=== PATIENT | female | born 1945 | race Caucasian/White ===

== ENCOUNTER → 2020-02-05 | Outpatient (CLI) | payer MEDICARE, SELFPAY ==
[2020-02-05 16:20] VITALS: BMI 33.9
--- NOTE | 2020-02-05 17:05 | RAD_ITS ---
STUDY: X-RAY CHEST REASON FOR EXAM: Female, 74 years old. COUGH AND SOB TECHNIQUE: Frontal and lateral views of the chest. COMPARISON: None. FINDINGS: Elevated right hemidiaphragm. No infiltrates. No effusions. 6.8 cm probable mass of the right hilum. CT with contrast is recommended. There is borderline cardiomegaly. Normal visualized pulmonary arteries. Normal visualized aortic arch and descending thoracic aorta. There are diffuse degenerative changes of the visualized thoracic spine. Normal visualized ribs, clavicles, and shoulders. There is no demonstrated abnormality of the visualized soft tissue structures of the upper abdomen. RAD/Chest PA and Lateral IMPRESSION: 6.8 cm probable mass of the right hilum. CT with contrast is recommended. Electronically Signed: Hardy Shaffer MD at 17:21 EDT , Service support ,
== END | disposition home or self-care (01) ==
LOC: MTRAD 17:05
PROVIDERS: PCP Family Medicine; Referring Provider Physician Assistant; Visit Provider Physician Assistant
DX: R06.02 Shortness of breath (principal)
CPT/HCPCS: 71046

== ENCOUNTER → 2020-02-10 | Outpatient (CLI) | payer MEDICARE, SELFPAY ==
[2020-02-05 16:20] VITALS: BMI 33.9
--- NOTE | 2020-02-10 07:10 | CT_ITS ---
STUDY: CT CHEST WITH CONTRAST REASON FOR EXAM: Female, 74 years old. 6.8 PALPABLE MASS RIGHT HILUM SEEN ON CXR RADIATION DOSAGE (If Supplied By Facility): CTDIvol = ( 18.78 ) mGy, DLP = ( 504.24 ) mGycm TECHNIQUE: Transaxial imaging was performed following intravenous administration of IV 100mL Isovue-300. Multiplanar coronal and sagittal images were reformatted. Individualized dose optimization techniques were used for this CT. COMPARISON: None. FINDINGS: Elevation of the right hemidiaphragm. Minimal increased markings scattered throughout the lungs suggest some mild scarring more prominent in the lower lobes. There is no demonstrated pleural abnormality. There are calcifications of the coronary arteries. Mild cardiomegaly. There are multiple small lymph nodes within the mediastinum, which are normal in size and morphology most compatible with reactive lymph hyperplasia. Normal hilar regions. No hilar mass is seen. Normal enhanced pulmonary arteries. There is atherosclerotic calcification of the aortic arch . There are multi-level degenerative changes of the thoracic spine. There is no demonstrated abnormality of the visualized upper abdomen. CT/Chest WITH Contrast IMPRESSION: No acute abnormality is seen. Electronically Signed: Abelino Jama, at 8:39 EDT , Service support ,
== END | disposition home or self-care (01) ==
PROVIDERS: PCP Family Medicine; Referring Provider Physician Assistant; Visit Provider Physician Assistant
DX: R22.2 Localized swelling, mass and lump, trunk (principal)
CPT/HCPCS: 71260; Q9967

== ENCOUNTER → 2020-02-20 | Outpatient (CLI) | payer MEDICARE, SELFPAY ==
[2020-02-05 16:20] VITALS: BMI 33.9
[2020-02-20 15:28] LABS: Absolute Lymphocyte Count 0.82 X10^3/uL (0.83-4.51); Absolute Neutrophil Count 4.1 X10^3/uL (2.0-7.7); Basophil# 0.04 X10^3/uL; Basophil% 0.7 % (0-1); Eosinophil# 0.13 X10^3/uL; Eosinophils% 2.4 % (0-5); Hemoglobin 14.8 g/dL (12.0-15.0); Lymphocyte # 0.82 X10^3/ul (4.0); Mean Corp Hgb Conc 30.2 g/dL (32-36); Mean Corpuscular Hgb 26.9 pg (27.0-32.0); Mean Corpuscular Volume 88.9 fL (81-99); Mean Platelet Vol. 11.8 fl (6.2-12.0); Monocyte# 0.34 X10^3/uL; Monocyte% 6.2 % (0-10); NRBC Flagged by Analyzer 0 % (0-5); Neutrophil # 4.14 X10^3/uL (2.7-7.7); Neutrophil % 75.5 % (47-70); Platelet Count 171 K/mm3 (150-450); RBC Distribution Width CV 16.2 % (11.6-14.6); RBC Distribution Width SD 53.4 fl (35.1-43.9); Red Blood Count 5.51 M/mm3 (4.2-5.4); White Blood Count 5.5 K/mm3 (4.4-11.0)
[2020-02-20 16:05] LABS: ALB/GLOB Ratio 1.1 RATIO (0.9-2.4); AST(SGOT) 33 U/L (15-37); Alanine Aminotransfer ALT/SGPT 23 U/L (13-56); Alkaline Phosphatase 77 U/L (45-117); Anion Gap 7 (5-15); BUN 16 mg/dL (7-18); BUN/Creat Ratio 13.7 RATIO (10-20); Calcium,Total 9.6 mg/dL (8.5-10.1); Chloride 104 mmol/L (98-107); Creatinine, Serum 1.17 mg/dL (0.55-1.02); EST Glomerular Filtration Rate 48 mL/min (>60); Est Glom Filt Rate - Afr Amer 58 mL/min (>60); Globulin 3.5 g/dL (2.2-4.2); Glucose 107 mg/dL (74-106); LDH 280 U/L (84-246); Potassium 4.2 mmol/L (3.5-5.1); Protein, Total 7.5 g/dL (6.4-8.2); Sodium Level 138 mmol/L (136-145)
== END | disposition home or self-care (01) ==
LOC: LAB.FUTURE 11:24 → MTLAB 11:30
PROVIDERS: PCP Family Medicine; Referring Provider Family Medicine; Visit Provider Family Medicine
DX: R91.8 Other nonspecific abnormal finding of lung field (principal); Z51.81 Encounter for therapeutic drug level monitoring; Z13.220 Encounter for screening for lipoid disorders
CPT/HCPCS: 36415; 80053; 83615; 85025

== ENCOUNTER → 2020-03-11 | Outpatient (CLI) | payer MEDICARE, SELFPAY ==
[2020-02-05 16:20] VITALS: BMI 33.9
[2020-03-11 12:26] LABS: Absolute Lymphocyte Count 1.41 X10^3/uL (0.83-4.51); Absolute Neutrophil Count 5.1 X10^3/uL (2.0-7.7); Basophil# 0.07 X10^3/uL; Basophil% 0.9 % (0-1); Eosinophil# 0.34 X10^3/uL; Eosinophils% 4.5 % (0-5); Lymphocyte # 1.41 X10^3/ul (4.0); Lymphocyte % 18.8 % (19-41); Mean Corp Hgb Conc 30.1 g/dL (32-36); Mean Corpuscular Hgb 26.4 pg (27.0-32.0); Mean Corpuscular Volume 87.6 fL (81-99); Mean Platelet Vol. 11.3 fl (6.2-12.0); Monocyte# 0.51 X10^3/uL; Monocyte% 6.8 % (0-10); NRBC Flagged by Analyzer 0 % (0-5); Neutrophil # 5.14 X10^3/uL (2.7-7.7); Neutrophil % 68.6 % (47-70); Platelet Count 180 K/mm3 (150-450); RBC Distribution Width CV 15.8 % (11.6-14.6); RBC Distribution Width SD 50.3 fl (35.1-43.9); Red Blood Count 6.45 M/mm3 (4.2-5.4); White Blood Count 7.5 K/mm3 (4.4-11.0)
[2020-03-11 12:32] LABS: Hematocrit 56.5 % (37-47)
[2020-03-11 12:55] LABS: Vitamin B12 500 pg/mL (211-911)
[2020-03-11 13:11] LABS: AST(SGOT) 34 U/L (15-37); Alanine Aminotransfer ALT/SGPT 23 U/L (13-56); Albumin, Serum 3.9 g/dL (3.2-5.0); Alkaline Phosphatase 94 U/L (45-117); Anion Gap 8 (5-15); BUN 26 mg/dL (7-18); Calcium,Total 9.7 mg/dL (8.5-10.1); Chloride 102 mmol/L (98-107); Creatinine, Serum 1.53 mg/dL (0.55-1.02); EST Glomerular Filtration Rate 35 mL/min (>60); Est Glom Filt Rate - Afr Amer 43 mL/min (>60); Free T3 2.7 pg/mL (2.18-3.98); Glucose 112 mg/dL (74-106); Potassium 4.3 mmol/L (3.5-5.1); Protein, Total 7.9 g/dL (6.4-8.2); Sodium Level 135 mmol/L (136-145); T4 Free Direct 0.93 ng/dL (0.76-1.46); Thyroid Stim Hormone (TSH) 4.96 uIU/mL (0.358-3.74)
== END | disposition home or self-care (01) ==
LOC: MTLAB 10:25
PROVIDERS: PCP Family Medicine; Referring Provider Family Medicine; Visit Provider Family Medicine
DX: E53.8 Deficiency of other specified B group vitamins (principal); R74.8 Abnormal levels of other serum enzymes; R53.83 Other fatigue; R20.2 Paresthesia of skin
CPT/HCPCS: 36415; 80053; 82607; 84439; 84443; 84481; 85025

== ENCOUNTER → 2020-03-17 | Outpatient (CLI) | payer MEDICARE, SELFPAY ==
[2020-02-05 16:20] VITALS: BMI 33.9
--- NOTE | 2020-03-17 10:13 | US_ITS ---
STUDY: ABDOMINAL ULTRASOUND - RIGHT UPPER QUADRANT REASON FOR VISIT: Female, 74 years old MIDLINE ABD PAIN AND LUQ PAIN TECHNIQUE: Ultrasound evaluation of the right upper quadrant was performed with real-time and static castillo-scale imaging. TECHNICAL QUALITY: Limited. Examination limited due to a combination of factors including obesity and bowel gas. COMPARISON: None. FINDINGS: Liver: The liver measures 13 cm. There is normal echogenicity of the liver. The bile ducts are within normal limits. There is hepatic color flow. The direction of portal flow is hepatopetal. There is no demonstrated mass lesion. Gallbladder: There is a distended gallbladder. The gallbladder wall measures 2.6 mm. There is a negative sonographic Coates''s sign. There is no pericholecystic fluid. There are no gallstones. Sludge is seen within the gallbladder lumen. Common Bile Duct (C.B.D.): The common bile duct measures 6.6 mm. Pancreas: Normal size of the head, body and tail of the pancreas. There is increased echogenicity of the pancreas. There is no demonstrated pancreatic mass or cyst. Right Kidney: Normal size of the right kidney. The right kidney measures 9.6 cm x 5.1 cm x 4.9 cm. Normal renal cortex. The right cortex measures 1.2 cm. There is no demonstrated renal mass or cyst. There is no right hydronephrosis. US/Abdomen Limited IMPRESSION: Distended gallbladder. Sludge is seen within the gallbladder lumen. Electronically Signed: Abelino Jama, at 15:30 EDT , Service support ,
--- NOTE | 2020-03-17 10:13 | US_ITS ---
STUDY: SUPERFICIAL ULTRASOUND - RIGHT CERVICAL REGION REASON FOR EXAM: Female, 74 years old. LUMP RIGHT NECK TECHNIQUE: A superficial ultrasound was performed with real-time and static castillo-scale imaging. COMPARISON: None. FINDINGS: There is an 8 mm x 4 mm x 6 mm hypoechoic well-defined nodule corresponding to the palpable mouth view. This most likely represents a small lymph node. US/Head/Neck Soft Tissue IMPRESSION: Findings suggestive of a small lymph node corresponding to the palpable abnormality. Electronically Signed: Abelino Jama, at 8:38 EDT , Service support ,
== END | disposition home or self-care (01) ==
LOC: US 10:12
PROVIDERS: PCP Family Medicine; Referring Provider Family Medicine; Visit Provider Family Medicine
DX: R22.1 Localized swelling, mass and lump, neck (principal); R74.8 Abnormal levels of other serum enzymes; R10.11 Right upper quadrant pain
CPT/HCPCS: 76536; 76705

== ENCOUNTER → 2020-03-25 | Outpatient (CLI) | payer MEDICARE, SELFPAY ==
[2020-02-05 16:20] VITALS: BMI 33.9
[2020-03-25 17:21] LABS: AST(SGOT) 26 U/L (15-37); Alanine Aminotransfer ALT/SGPT 17 U/L (13-56); Albumin, Serum 3.6 g/dL (3.2-5.0); Alkaline Phosphatase 87 U/L (45-117); Anion Gap 7 (5-15); BUN 12 mg/dL (7-18); BUN/Creat Ratio 10.9 RATIO (10-20); Calcium,Total 9.3 mg/dL (8.5-10.1); Chloride 103 mmol/L (98-107); EST Glomerular Filtration Rate 52 mL/min (>60); Est Glom Filt Rate - Afr Amer 63 mL/min (>60); Globulin 3.7 g/dL (2.2-4.2); Glucose 111 mg/dL (74-106); Potassium 4.2 mmol/L (3.5-5.1); Protein, Total 7.3 g/dL (6.4-8.2); Sodium Level 139 mmol/L (136-145)
== END | disposition home or self-care (01) ==
LOC: BFHLAB 14:44
PROVIDERS: PCP Family Medicine; Visit Provider Family Medicine
DX: N18.32 Chronic kidney disease, stage 3b (principal); Z51.81 Encounter for therapeutic drug level monitoring
CPT/HCPCS: 36415; 80053

== ENCOUNTER → 2020-03-30 10:47 | Outpatient (CLI) | payer MEDICARE, SELFPAY ==
[2020-02-05 16:20] VITALS: BMI 33.9
--- NOTE | 2020-03-30 10:50 | ECHOD_ITS ---
Version 3 Reason For Study: DYSPNEA, EDEMA, EVAL FOR HF Procedure This was a 2D Doppler, Color Flow transthoracic echocardiogram. Exam performed in department. Left Ventricle Normal LV size. Severe concentric left ventricular hypertrophy. Left ventricular systolic function is normal. The estimated ejection fraction is 60 %. Stage 2 diastolic dysfunction. No regional wall motion abnormalities noted. Right Ventricle Normal RV size. Normal systolic function. Atria The left atrium is moderately enlarged. Normal right atrium. Mitral Valve There is mild to moderate mitral annular calcification. Mild (1+) mitral valve insufficiency. Tricuspid Valve Normal tricuspid valve. Mild to moderate (1-2+) tricuspid valve insufficiency. Pulmonary artery systolic pressure is 50 mmHg. Aortic Valve Trisinus/trileaflet aortic valve. Moderate focal aortic valve thickening. Peak aortic valve gradient 70 mmHg. Mean aortic valve gradient 42 mmHg. Severe aortic stenosis. Calculated aortic valve area (continuity equation) is 0.6 cm2. Pulmonic Valve Normal pulmonic valve. Great Vessels Normal aortic root. The pulmonary artery is normal size. Normal inferior vena cava. Pericardium/Pleural No pericardial effusion. MMode/2D Measurements & Calculations LVIDd: 5.4 cm IVSd: 1.9 cm LVOT diam: 2.0 cm LVIDs: 3.5 cm LVPWd: 1.3 cm LVOT area: 3.1 cm2 RVDd: 3.4 cm FS: 34.7 % LAV(MOD-bp): 98.3 ml LA A4 area: 27.4 cm2 LA dimension(2D): 4.0 cm LAV(MOD-bp) Indexed: 49.3 ml/m2 LAV(MOD-sp2): 102.5 ml LAV(MOD-sp4): 95.3 ml RA A4 area: 16.8 cm2 Time Measurements MV dec time: 0.14 sec Doppler Measurements & Calculations MV E max chris: 164.1 cm/sec MV V2 max: 163.1 cm/sec Ao V2 max: 418.7 cm/sec MV A max chris: 147.8 cm/sec MV max P.6 mmHg Ao max P.4 mmHg MV E/A: 1.1 MV V2 mean: 108.2 cm/sec Ao V2 mean: 308.3 cm/sec MV mean P.2 mmHg Ao mean P.5 mmHg MV V2 VTI: 27.5 cm Ao V2 VTI: 84.3 cm MVA(VTI): 1.6 cm2 WINSOME(I,D): 0.53 cm2 WINSOME(V,D): 0.59 cm2 LV V1 max: 81.0 cm/sec MR max chris: 673.8 cm/sec SV(LVOT): 44.7 ml LV V1 max P.6 mmHg MR max P.6 mmHg LV V1 mean P.3 mmHg MR mean chris: 525.5 cm/sec LV V1 mean: 53.6 cm/sec MR mean P.5 mmHg LV V1 VTI: 14.5 cm MR VTI: 220.8 cm PA V2 max: 93.0 cm/sec TR max chris: 339.8 cm/sec TR max P.2 mmHg Interpretation Summary Normal LV size. Severe concentric left ventricular hypertrophy. Left ventricular systolic function is normal. The estimated ejection fraction is 60 %. The left atrium is moderately enlarged. Stage 2 diastolic dysfunction. Pulmonary artery systolic pressure is 50 mmHg. Severe aortic stenosis. Calculated aortic valve area (continuity equation) is 0.6 cm2. Ordering Physician: Giovanna Wright Referring Physician: Giovanna Wright Performed By: Nevaeh Leon, RONNA, RVT
== END ==
PROVIDERS: PCP Family Medicine; Referring Provider Family Medicine; Visit Provider Family Medicine
DX: R06.00 Dyspnea, unspecified (principal); R60.0 Localized edema; I10 Essential (primary) hypertension
CPT/HCPCS: 93306

== ENCOUNTER 2020-05-13 06:56 | Day surgery (SDC) | payer MEDICARE, SELFPAY ==
[2020-04-30 15:02] VITALS: BMI 33.5
--- NOTE | 2020-05-08 12:32 | RAD_ITS ---
STUDY: X-RAY CHEST REASON FOR EXAM: Female, 74 years old. AV STENOSIS, ENLARGED HEART, NO CURRENT CHEST COMPLAINTS TECHNIQUE: PA and lateral views of the chest. COMPARISON: 02/05/2020 FINDINGS: The lungs are clear and expanded. Elevated right hemidiaphragm which is unchanged. There is moderate cardiac enlargement. No change in the prominent hilum of the right lung Normal visualized pulmonary arteries. Normal visualized aortic arch and descending thoracic aorta. Normal visualized thoracic spine. Normal visualized ribs, clavicles, and shoulders. There is no demonstrated abnormality of the visualized soft tissue structures of the upper abdomen. RAD/Chest PA and Lateral IMPRESSION: No active disease. Electronically Signed: Atul Marr MD at 9:09 EST Tel , Service support ,
[2020-05-08 12:42] LABS: Absolute Lymphocyte Count 1.22 X10^3/uL (0.83-4.51); Absolute Neutrophil Count 5.4 X10^3/uL (2.0-7.7); Basophil# 0.07 X10^3/uL; Basophil% 0.9 % (0-1); Eosinophils% 4.1 % (0-5); Hematocrit 50.2 % (37-47); Hemoglobin 15.6 g/dL (12.0-15.0); Lymphocyte # 1.22 X10^3/ul (4.0); Lymphocyte % 16.5 % (19-41); Mean Corp Hgb Conc 31.1 g/dL (32-36); Mean Corpuscular Hgb 28.2 pg (27.0-32.0); Mean Corpuscular Volume 90.8 fL (81-99); Mean Platelet Vol. 10.6 fl (6.2-12.0); Monocyte# 0.42 X10^3/uL; Monocyte% 5.7 % (0-10); NRBC Flagged by Analyzer 0 % (0-5); Neutrophil # 5.37 X10^3/uL (2.7-7.7); Neutrophil % 72.5 % (47-70); Platelet Count 208 K/mm3 (150-450); RBC Distribution Width CV 16.7 % (11.6-14.6); RBC Distribution Width SD 55.7 fl (35.1-43.9); Red Blood Count 5.53 M/mm3 (4.2-5.4); White Blood Count 7.4 K/mm3 (4.4-11.0)
[2020-05-08 12:50] LABS: International Normalized Ratio 1.1; Prothrombin Time (Protime)PT. 13.7 SECONDS (11.7-14.9)
[2020-05-08 12:51] LABS: Partial Thromboplast Time 29.9 Seconds (24.1-36.2)
[2020-05-08 13:14] LABS: Anion Gap 4 (5-15); BUN 15 mg/dL (7-18); BUN/Creat Ratio 10.7 RATIO (10-20); Calcium,Total 9.9 mg/dL (8.5-10.1); Chloride 104 mmol/L (98-107); EST Glomerular Filtration Rate 39 mL/min (>60); Est Glom Filt Rate - Afr Amer 47 mL/min (>60); Glucose 111 mg/dL (74-106); Potassium 4.4 mmol/L (3.5-5.1); Sodium Level 137 mmol/L (136-145)
[2020-05-12 07:25] VITALS: BMI 33.4
[2020-05-13] VITALS (16 sets, daily range): BP systolic 129–169; BP diastolic 64–83; PULSE 69–85; RESP 18–20; TEMP 36.4–36.7; O2SAT 93–100
--- NOTE | 2020-05-13 07:00 | HP_ITS ---
HPI HPI History of Present Illness Surgical H&P: Yes Details: This is a 74-year-old white female who presents today for outpatient cardiovascular consultation based upon concerns of underlying lower extremity peripheral pitting edema, a cardiac murmur, and an abnormal transthoracic echocardiogram with findings compatible with severe aortic valve stenosis by peak velocity, mean gradient, and aortic valve area. She states that she has been noticing lower extremity peripheral pitting edema. She was treated for a diuretic for approximately 2 weeks. She states she lost several pounds of fluid and felt much better. She states she had ankles again. She notes her diuretic was stopped because she lost weight. She states subsequently she is had recurrence of her lower extremity edema. During this time she does not necessarily describe ongoing chest discomfort. There is no symptoms considered classic for angina pectoris. She has not had acute orthopnea or PND. She does have lower extremity peripheral pitting edema. There is been no near syncope or syncope. She states her blood pressure has been high at home. She is now on an ARB. She notes the dose has been decreased because she was concerned about side effects and how she was tolerating or not tolerating the medication. However she states her blood pressure continues to run high. She does note her blood pressure was much better when she was on her diuretic therapy. She had a transthoracic echocardiogram performed on 03-30-2020. The results are as noted below. Based upon the findings she does appear to have severe aortic valve stenosis with a peak aortic valve velocity greater than 4 m/s, mean gradient greater than 40 mmHg, and an aortic valve area of approximately 0.5 to 0.6 cm?. Her overall LV systolic function appeared to be preserved. To the best of her knowledge she has not gone through other cardiovascular testing in the past. She did have an ECG in the office today. She was in sinus rhythm with the appearance of left atrial enlargement poor R wave progression and nonspecific T wave abnormality. Intake Vital Signs 04/30/20 Height 5 ft 6 in 04/30/20 Weight: 207 lb 6 oz 04/30/20 BMI 33.5 04/30/20 BP 160/72 H 04/30/20 Blood Pressure Location Rt brachial 04/30/20 Position Sitting 04/30/20 Respiration 18 04/30/20 Pulse 72 04/30/20 Pulse Source Auscultation Intake Visit Reasons: SOB/High BP/ Ref. Malys Door Maker Required: No Accompanied by: Daughter Allergies No Known Allergies Allergy (Unverified 04/30/20 15:03) Medications coenzyme Q10 30 mg capsule 30 mg PO DAILY 02/05/20 [History Confirmed 04/30/20] cyanocobalamin (vitamin B-12) 1,000 mcg tablet 1,000 mcg PO DAILY 04/30/20 [History Confirmed 04/30/20] losartan 25 mg tablet 25 mg PO DAILY 04/30/20 [History Confirmed 04/30/20] triamterene 37.5 mg-hydrochlorothiazide 25 mg capsule 1 cap PO DAILY #30 cap 04/30/20 [Rx Confirmed 04/30/20] PFSH Medical History Cardiac murmur (Acute) CKD (chronic kidney disease) stage 3, GFR 30-59 ml/min (Chronic) Hypothyroidism (Chronic) Left atrial enlargement (Acute) Left ventricular hypertrophy (Acute) Nonrheumatic aortic (valve) stenosis (Chronic) Essential hypertension (Chronic) SOB (shortness of breath) (Acute) Fatigue (Acute) Heart disease (Inactive) Surgical History History of hysterectomy (Resolved) Family History Mother Myocardial infarction Heart disease Hypertension Father Heart disease Brother Heart disease Sister CVA (cerebral vascular accident) Brother Brain aneurysm Other Cancer Diabetes Social History (Updated 04/30/20 @ 16:[address] Minesh Castillo MD) Smoking Status: Never smoker alcohol intake: never substance use type: does not use caffeine: Yes Type: coffee Number of servings: 1 ROS Const Const: Positive for fatigue (increased), weakness (occasional bilat LE) and difficulty sleeping; negative for frequent falls, excessive sweating, weight gain or weight loss Eyes Eyes: Negative for transient loss of vision, blurry vision or change in vision ENT ENT: Negative for dizziness or balance problems Cardio Chest Pain: Yes (occasional) Character: other (pressure) Onset: at rest Location: left chest Duration: brief Palpitations: No Edema: Bilateral (Bilat LE,ankles +2 pitting) Muscle aches with walking: None Resp Respiratory: Positive for SOB with activity (increased); negative for SOB at rest GI GI: Negative vomiting or vomiting blood/hematemesis : Negative for hematuria Musc Musc: Positive for muscle weakness (increased) and joint pain (rt knee); negative for muscle aches/ myalgia or balance problems Skin Skin: Negative non-healing lesions or rash Neuro Neuro: Positive for weakness (occasional bilat LE); negative for dizziness, lightheadedness, orthostatic symptoms, frequent falls or blurry vision Anupam Hematologic/Lymphatic: Negative for easy bleeding Endo Endo: Positive for fatigue (increased); negative for excessive sweating Psych Psych: Negative for anxiety or depression Allergy Allergy/Immunology: Negative for hives, Negative for rash Cardiology Exam Const Appearance: cooperative, healthy appearing, comfortable, no acute distress, well developed and well groomed Nutritional Appearance: obese Orientation: alert, awake and oriented x3 Head Head: normal to inspection, normocephalic and atraumatic Ears: hearing grossly normal bilaterally Nose: external nose normal Face and Sinus: face symmetric Eyes Eyelids: eyelids normal Conjunctivae: conjunctivae normal Pupils: PERRL EOM: EOM intact bilaterally Neck Neck: normal visual inspection and full ROM Carotids: normal carotid upstroke Chest Chest inspection: normal inspection of the chest, symmetric chest movement and normal respiratory effort Auscultation: Bilateral: Clear to Auscultation Cardio Palpation: normal PMI Rate: regular rate Rhythm: regular rhythm Heart sounds: S1 normal and S2 normal Murmur: Grade 3/6, harsh, mid systolic, LLSB, apex, LVOT and sternal notch GI GI: normal to inspection, soft, bowel sounds diminished and obese Neuro General: alert, awake, oriented x3 and moves all extremities Skin Skin: no rashes or lesions noted Extremities Pulses: Normal: Right Radial Pulse, Left Radial Pulse Lower Extremity Edema: +2: Bilateral Psych Psychological: normal affect Assessment & Plan 1. Nonrheumatic aortic (valve) stenosis I35.0 Plan At the present time it does appear she has severe aortic valve stenosis based upon her history, exam, and her echocardiogram. It is recommended she undergo further evaluation with diagnostic cardiac catheterization in preparation for tertiary care center evaluation for possible TAVR versus surgical based aortic valve replacement. The procedure and risks were discussed with her. She was agreeable to this approach. Orders Orders: 12 Lead EKG performed by BMS Today Left Heart Cath/COR/LV Percut Today Basic Metabolic Profile (BMP) Today Partial Thromboplast Time Today Prothrombin Time w/INR Today CBC W/Diff, Automated Today Chest PA and Lateral Today 2. Shortness of breath R06.02 Plan Although she did not complain of classic orthopnea or PND. It does appear upon further questioning that she did have concerns of being short of breath and dyspneic. This was reinforced by her daughter who was with her. This could go along with concerns of her aortic valve disease, fluid accumulation, and concerns for CHF. Thus she is going to reinitiate her diuretic therapy that she was on before and responded to-apparently well before. She will proceed with further evaluation as noted. Orders Orders: Left Heart Cath/COR/LV Percut Today Basic Metabolic Profile (BMP) Today Partial Thromboplast Time Today Prothrombin Time w/INR Today CBC W/Diff, Automated Today Chest PA and Lateral Today 3. Chronic diastolic congestive heart failure I50.32 Plan Again there is concerned that she may have an element of CHF based upon her history, her exam, superimposed upon her aortic valve findings. /She will continue medical therapy and evaluation as noted. 4. Essential hypertension I10 Plan Hopefully restarting her diuretic therapy will help bring her blood pressure under better control. Orders Orders: 12 Lead EKG performed by BMS Today Left Heart Cath/COR/LV Percut Today Basic Metabolic Profile (BMP) Today Partial Thromboplast Time Today Prothrombin Time w/INR Today CBC W/Diff, Automated Today Chest PA and Lateral Today Plan Detail Other Orders Orders: 12 Lead EKG performed by BMS Today I51.7, R01.1 Left Heart Cath/COR/LV Percut Today I50.9, I51.7 Basic Metabolic Profile (BMP) Today I50.9 Partial Thromboplast Time Today I50.9 Prothrombin Time w/INR Today I50.9, I51.7 CBC W/Diff, Automated Today I50.9, R01.1 Chest PA and Lateral Today I50.9 Other Medications New: triamterene-hydrochlorothiazid 37.5-25 mg 1 cap PO DAILY 30 caps 3RF Additional Comments The above was discussed with the patient with her daughter present. She was asked to consider checking with her [facility] [facility] as to where she could be evaluated by a heart team for consideration for TAVR versus surgical based aortic valve replacement. Thank you for allowing me to participate in the care of your patient. Please don't hesitate to call if any issues arise. This note was generated using a voice recognition system and there may be incorrect words, spelling or punctuation that were not noted when reviewing the office note prior to saving. Follow Up 3 Months (with PFM) Coding Level of Care Code Off vis,new,level 5 Diagnoses Nonrheumatic aortic (valve) stenosis I35.0 Shortness of breath R06.02 Chronic diastolic congestive heart failure I50.32 ??Heart failure type: diastolic ??Heart failure chronicity: chronic Essential hypertension I10 Coding Level of Care Code Off vis,new,level 5 Diagnoses Nonrheumatic aortic (valve) stenosis I35.0 Shortness of breath R06.02 Chronic diastolic congestive heart failure I50.32 ??Heart failure type: diastolic ??Heart failure chronicity: chronic Essential hypertension I10 Supplemental Info Supplemental Information Echocardiogram: 03-30-2020 Interpretation Summary Normal LV size. Severe concentric left ventricular hypertrophy. Left ventricular systolic function is normal. The estimated ejection fraction is 60 %. The left atrium is moderately enlarged. Stage 2 diastolic dysfunction. Pulmonary artery systolic pressure is 50 mmHg. Severe aortic stenosis. Calculated aortic valve area (continuity equation) is 0.[address] scan: 02-10-2020 FINDINGS: Elevation of the right hemidiaphragm. Minimal increased markings scattered throughout the lungs suggest some mild scarring more prominent in the lower lobes. There is no demonstrated pleural abnormality. There are calcifications of the coronary arteries. Mild cardiomegaly. There are multiple small lymph nodes within the mediastinum, which are normal in size and morphology most compatible with reactive lymph hyperplasia. Normal hilar regions. No hilar mass is seen. Normal enhanced pulmonary arteries. There is atherosclerotic calcification of the aortic arch . There are multi-level degenerative changes of the thoracic spine. There is no demonstrated abnormality of the visualized upper abdomen. CT/Chest WITH Contrast IMPRESSION: No acute abnormality is seen. Diagnostics Electrocardiogram 04/30/20 Echocardiogram 03/30/20 Abdomen Ultrasound 03/17/20 Chest X-Ray 02/05/20 COVID (Procedure Consent) Procedure Criteria Procedure Criteria: Yes Elective The surgeon/proceduralist and patient have discussed in detail the risk of exposure to and/or potential harm posed by the COVID-19 virus with having a surgery/procedure at this time versus the risk of? delaying the surgery/procedure. It is not possible to know either the risk of delaying the surgery or procedure or chance of getting an infection with perfect accuracy, but a joint decision was made between the patient and the surgeon/proceduralist ?to proceed at this time with the scheduled surgery/procedure as indicated on the consent form. I have re-examined the patient. There are no clinical changes since date of exam.
--- NOTE | 2020-05-13 09:13 | CL.D_ITS ---
Patient Name: SARAH ALMANZAR Study Date: 05/13/2020 Performing: Minesh Castillo MD Ht: 66.14 inches 168 cm : 1945 Wt: 207.23 lbs 94 kg Age: 74 Gender: female BSA: 2.03 PROCEDURE(S) PERFORMED [id number] ROOT ANGIO WITH HEART CATH CLINICAL PROFILE AND INDICATIONS Indications: Valvular Disease, Pre-Operative Evaluation Heart Failure: None Stress/Imaging Stress/Image Study Performed: No Angina Classification Anginal Classification w/in 2 Weeks: Anginal Equivalent Dyspnea CAD Presentations: Other: dyspnea on exertion CONCLUSIONS [place] Multivessel CAD Aortic Valve Calcification- Severe Mitral Valve Annular Calcification Severe annular calcification RECOMMENDATIONS Case discussed / reviewed with Dr. Park of interventional cardiology: Consider staged approach: PCI of the LCX and subsequent referral to a tertiary center for Heart Team consideration for addition al LAD PCI and TAVR vs. CABG and SAVR DESCRIPTION OF PROCEDURE The patient arrived to the procedure lab. The risks and benefits of the procedure as well as a full d escription of our services here and current unavailability of surgical backup were fully explained to the patient and/or their significant other prior to the catheterization. The Timeout was completed, verifying the correct patient and procedure. The patient's procedural site was prepped and draped in the usual fashion. Local anesthetic was given subcutaneously to right radial region with Lidocaine 2% . Using a modified Seldinger technique, arterial access was obtained via the right radial artery, a 6 Fr sheath was inserted. Left Coronary Artery selective angiography was performed in multiple views u sing a 5 Fr. 4.0 [place] catheter. Right Coronary Artery selective angiography was then performed in mu ltiple views using a 5 Fr. 4.0 [place] catheter. Ascending (root) aorta selective angiography was then performed in single view. Ascending (root) aorta selective angiography was then performed in single view. CORONARY ANGIOGRAPHY DOMINANCE: Right Dominant LEFT HEART ASSESSMENT Left Ventricular Ejection Fraction: Not assessed LEFT MAIN: Angiographically normal LEFT ANTERIOR DESCENDING ARTERY: Mild luminal irregularities PROX LAD: Mild calcification, diffuse: 10 - 25 % Stenosis MID LAD: long; diffuse; 50 % Stenosis, eccentric: 75 % Stenosis CIRCUMFLEX ARTERY: Mild luminal irregularities PROX CIRC: diffuse: 10 - 25 % Stenosis MID CIRC: discrete: 90 % Stenosis RIGHT CORONARY ARTERY: Mild luminal irregularities VALVE FINDINGS: Aortic valve: calcified - severe Mitral annulus: calcified - severe AORTIC ROOT: Angiographically normal COMPLICATIONS PROCEDURE MEDICATIONS Versed 1 mg IV Fentanyl 50 mcg IV Versed 1 mg IV Oxygen: 2 L/min via nasal cannula Heparin diluted in 23cc Heparinized saline. Patient given 10cc IA of this solution. 05/13/2020 07:59 :14 Labetalol 10 mg 05/13/2020 08:30:48 Labetalol 10 mg 05/13/2020 08:44:56 Verapamil 2.5mg, Ntg 100mcgs, 2000 units of Heparin diluted in 23cc Heparinized saline. Patient give n 10cc IA of this solution. 05/13/2020 07:59:14 SUMMARY OF HEMODYNAMIC DATA Time AIR REST ECG 07:15:57 AO 160/94 (123) SA 08:11:30 AO 213/114 (157) 08:29:59 AO 184/89 (126) 09:04:25 Signed By Minesh Castillo MD On 05/13/2020 09:19:23 Signed By Minesh Castillo MD On 05/13/2020 09:12:12 Minesh Castillo MD
--- NOTE | 2020-05-13 10:30 | EKG12_ITS ---
Test Reason : AM EKG Blood Pressure : / mmHG Vent. Rate : 077 BPM Atrial Rate : 077 BPM P-R Int : 230 ms QRS Dur : 110 ms QT Int : 422 ms P-R-T Axes : 076 075 245 degrees QTc Int : 477 ms Sinus rhythm with 1st degree A-V block Incomplete left bundle branch block ST & T wave abnormality, consider inferior ischemia Prolonged QT Abnormal ECG Confirmed by PAMELA LENNON, DAGO ([id number]), assistant editor ABEBE BURRELL ([id number]) on 05/21/2020 9:12:26 AM Referred By: Dago Santiago Confirmed By:DAGO SANTIAGO MD
[2020-05-13] MEDS: 0.9% Normal Saline 1,000 ML 150 ML IV (11:08)
--- NOTE | 2020-05-13 12:15 | CRPHASE1_ITS ---
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:: [place] Phase II Cardiac Rehab:: Yes Sessions:: 36 sessions - 3 days/wk, 12 weeks Risk Factors/Lifestyle Smoking Status: Never smoker Second-Hand Smoke:: No Hx Hypertension: Yes Hx Diabetes Mellitus Type 1: No Hx Diabetes Mellitus Type 2: No Hx Metabolic Disorders: Yes Hx Dyslipidemia: Yes Hx Obesity: Yes Post-Menopausal: Yes Stress: Long-standing ETOH: No Caffeine: No Substance Abuse: No Risk Factor for Sedentary Lifestyle: Moderate Risk Family History: Family History (Last Reviewed 04/30/20 @ 15:07 by Lilian Bowen) Mother Myocardial infarction Heart disease Hypertension Father Heart disease Brother Heart disease Sister CVA (cerebral vascular accident) Brother Brain aneurysm Other Cancer Diabetes Past Cardiac Illness: Valve Disorders, Heart Murmur, Coronary Artery Disease Phase I Education Given On:: [place], Nutrition, Antiplatelet medication, CHF Issues Affecting Care:: None Knowledge of Condition:: No Learning Preferences: Verbal, Written Cardiac Rehabilitation Info Cardiac Rehabilitation Program Information: Cardiac Rehabilitation is important for patients like you who are recovering from a heart problem. Cardiac rehabilitation programs are recognized as integral to the continued care of the patient with coronary heart disease. The cardiac rehabilitation program is designed to optimize a patient's physical, psychological, and social functioning. Health manager critical care work in cardiac rehabilitation programs and assist you with getting the treatments you need to get stronger and healthier - like exercise, healthy eating habits, and medications. Cardiac rehabilitation has been show to help people with heart problems live longer and have better life enjoyment than people who do not go to cardiac rehabilitation. Please contact the Cardiac Rehabilitation Program at [facility] at in two weeks if you have not heard from them.
--- NOTE | 2020-05-13 12:17 | CRPH1.INSTRU ---
General Education CAD and cardiac anatomy and function:: Patient communicates acknowledgment, Needs reinforcement Explanation of diagnoses and procedures:: Patient communicates acknowledgment, Needs reinforcement Sign/Symptoms of CT:: Patient communicates acknowledgment, Needs reinforcement Antiplatelet therapy: Patient communicates acknowledgment, Needs reinforcement Proper use of NTG-SL: Patient communicates acknowledgment, Needs reinforcement Emergency procedures and activation of EMS: Patient communicates acknowledgment, Needs reinforcement Compliance of all prescribed medications: Patient communicates acknowledgment, Needs reinforcement Dyslipidemia Patient Dyslipidemia Risk Factors Are:: Total Cholesterol Recommendations Include:: Lipid profile not available, Reviewed NCEP/ATP guidelines, Therapeutic Lifestyle Change dietary guidelines Dyslipidemia Response Code:: Patient communicates acknowledgment Overweight/Obesity Patient Overweight/Obesity Risk Factors Are:: Obesity - > or = 30 Recommendations Include:: Weight loss of 5-10%, Reduced calorie diet, Exercise 5-7 times/week Overweight/Obesity:: Patient communicates acknowledgment, Needs reinforcement Hypertension Recommendations Include:: Maintain BP <130/85, DASH dietary guidelines, Decrease/maintain normal body weight, Moderation of ETOH Hypertension:: Patient communicates acknowledgment, Needs reinforcement Heart Disease Patient Heart Disease Risk Factors Are:: Family history of heart disease < 65 years old Recommendations Include:: Educated family members of their risk, Educated family members of importance of prevention of heart disease Heart Disease Response Code:: Patient communicates acknowledgment, Needs reinforcement Metabolic Syndrome Patient Metabolic Syndrome Risk Factors Are [3 of 5]:: Fasting blood sugar > 100 mg/dL, Waist circumference > 35 [female] or 40 [male], High triglyceride >150, Hypertension, Low HDL <40 [male] or < 50 [female] Recommendations Include:: Does not meet criteria, Reinforce compliance to risk factor modifications, Encouraged follow-up with Primary Care Physician Metabolic Syndrome Response Code:: Patient communicates acknowledgment, Needs reinforcement Sedentary Patient Sedentary Risk Factors Are:: Lack of regular exercise Recommendations Include:: Aerobic exercise 5-7 times/week for 20-30 minutes continuously, Benefits of regular exercise, Discussed home walking program, Monitored Outpatient Cardiac Rehab Sedentary Response Code:: Patient communicates acknowledgment, Needs reinforcement Stress Recommendations Include:: Identification of stressors, and assessment of coping skills, Stress management techniques Stress Response Code:: Patient communicates acknowledgment, Needs reinforcement
--- NOTE | 2020-05-13 13:04 | NURSING ---
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 Report received from business development intern RN. Upon assessment, pt c/o tingling to left side. Neuro exam completed and sensation different when comparing Left side to right side. Pt reports this started while on table in concrete plant laborer. Dr Castillo at bedside and pt's daughter at bedside. Will continue to monitor.
[2020-05-13] MEDS: TICAGRELOR 90 MG TABLET PO (21:52)
[2020-05-13] MEDS: Atorvastatin Calcium 40 MG Tablet PO (21:52)
[2020-05-14] VITALS (8 sets, daily range): BP systolic 113–151; BP diastolic 67–76; PULSE 69–76; RESP 16–18; TEMP 36.4–36.8; O2SAT 94–96
[2020-05-14 07:08] LABS: Hematocrit 46.8 % (37-47); Hemoglobin 14.5 g/dL (12.0-15.0); Mean Corpuscular Hgb 27.8 pg (27.0-32.0); Mean Corpuscular Volume 89.7 fL (81-99); Mean Platelet Vol. 10.3 fl (6.2-12.0); Platelet Count 155 K/mm3 (150-450); RBC Distribution Width CV 16.2 % (11.6-14.6); RBC Distribution Width SD 54.7 fl (35.1-43.9); Red Blood Count 5.22 M/mm3 (4.2-5.4); White Blood Count 7.2 K/mm3 (4.4-11.0)
[2020-05-14 07:37] LABS: AST(SGOT) 34 U/L (15-37); Alanine Aminotransfer ALT/SGPT 21 U/L (13-56); Albumin, Serum 3.3 g/dL (3.2-5.0); Alkaline Phosphatase 74 U/L (45-117); Anion Gap 6 (5-15); BUN 13 mg/dL (7-18); BUN/Creat Ratio 11.7 RATIO (10-20); Calcium,Total 9.1 mg/dL (8.5-10.1); Chloride 108 mmol/L (98-107); Creatinine, Serum 1.11 mg/dL (0.55-1.02); EST Glomerular Filtration Rate 51 mL/min (>60); Est Glom Filt Rate - Afr Amer 62 mL/min (>60); Estimated Creatinine Clearance 42.26 ml/min; Globulin 3.3 g/dL (2.2-4.2); Glucose 103 mg/dL (74-106); Potassium 4.1 mmol/L (3.5-5.1); Protein, Total 6.6 g/dL (6.4-8.2); Sodium Level 140 mmol/L (136-145)
[2020-05-14] MEDS: Cyanocobalamin 500 MCG Tablet 1000 MCG PO (09:22)
[2020-05-14] MEDS: Aspirin E.C. 81 MG Tablet PO (09:22)
[2020-05-14] MEDS: TICAGRELOR 90 MG TABLET PO (09:23)
[2020-05-14] MEDS: amLODIPine 2.5 MG Tablet PO (09:24)
--- NOTE | 2020-05-14 09:26 | PCM.DC ---
- Discharge Diagnoses Current Active Problems: CAD status post LCx PCI Reason(s) for Visit for Discharge Instructions: Aortic valve stenosis. Preoperative evaluation with cardiac catheterization You will use the following diet at home:: Cardiac Your food should be the consistency of: Regular Discharge Activity: May Drive - May not drive: X48 hours, May Shower - Shower: Today, May Take a Tub Bath - May take a tub bath: In 7 days May resume sexual activity in: 2 weeks Weight Bearing Status: - - Avoid heavy exertional activity Call your doctor if your incision/area has: Continuous Slow Oozing, Sudden Increased Bleeding, Increased Pain/ Swelling, Increased Redness, Foul Smelling Discharge Call your doctor if you observe: Fever of 101 or Higher, Shortness of breath, Fainting spells, Chest pain Remove Dressing in (days):: 1 Cleanse incision/area with: Soap & Water Allergies/Adverse Reactions: Allergies No Known Allergies Allergy (Unverified 04/30/20 15:03) Medications to take at Discharge coenzyme Q10 30 mg capsule 30 mg PO DAILY 02/05/20 cyanocobalamin (vitamin B-12) 1,000 mcg tablet 1,000 mcg PO DAILY 04/30/20 triamterene 37.5 mg-hydrochlorothiazide 25 mg capsule 1 cap PO DAILY #30 cap 04/30/20 aspirin 81 mg tablet,delayed release 81 mg PO DAILY 05/01/20 Amlodipine [Norvasc] 2.5 mg PO DAILY #30 tab 05/14/20 Atorvastatin Calcium [Lipitor] 40 mg PO QHS tablet 05/14/20 Ticagrelor [Brilinta] 90 mg PO BID #60 tab 05/14/20 The following prescriptions were given: Ticagrelor [Brilinta] 90 mg PO BID #60 tab Transmission Status: Pending to [id number] Amlodipine [Norvasc] 2.5 mg PO DAILY #30 tab Transmission Status: Pending to [id number] Orders to be completed after discharge: Phase II, Outpatient Cardiac Rehab Location: None Selected Primary Care Physician: Giovanna Wright DO [Primary Care Provider] - Test Results: Test results from this visit will be discussed in further detail at your follow-up appointment, if applicable. Please Follow Up With: Minesh Castillo MD When: Ranjana to arrange follow up appointment Proposed Discharge Date: 05/14/20
--- NOTE | 2020-05-14 09:29 | DS.PCM_ITS ---
Discharge Date and Diagnosis Date of Admission: 05/13/20 Date of Discharge: 05/14/20 - Primary Discharge Diagnosis Acute Problems: CAD status post LCx PCI - Secondary Discharge Diagnosis Chronic Problems: Chronic Problems (Last Updated 05/13/20 @ 12:07 by Lilian Bowen) Presence of stent in coronary artery (Chronic ~05/13/20) PCI/ASCENCION to mid Circumflex 05/13/20 Atherosclerotic heart disease of [place] coronary artery without angina pectoris (Chronic) CKD (chronic kidney disease) stage 3, GFR 30-59 ml/min (Chronic) Hypothyroidism (Chronic) Nonrheumatic aortic (valve) stenosis (Chronic) Essential hypertension (Chronic) Hospital Course and Treatment Procedures: Cardiac catheterization, - - Cardiac intervention: LCx PCI Summary of Care Provided: The patient is a 74 year old white female with a history of aortic valve stenosis who presented for preoperative evaluation with diagnostic cardiac catheterization. The cardiac catheterization procedure demonstrated underlying CAD especially involving the LAD and LCx systems. Status post review of the case with interventional cardiology it was elected to perform LCx PTCA/ASCENCION. The patient was monitored in the hospital overnight. This day the patient is awake and alert. She has no new acute symptoms. She has been up and in the chair and ambulating in her room without difficulty. On examination she was noted to have an area of ecchymoses around her right radial artery site. Her right radial artery pulse was 2+/4+ with no bruits. She remained in sinus rhythm with occasional premature ectopic complex. ECG did not appear to demonstrate any acute ECG changes. On this day it was felt the patient could be released home for continued outpatient cardiovascular follow-up. This will include local outpatient cardiovascular follow-up and referral to a tertiary care center, per the patient's request [facility], for consideration for aortic valve intervention with LAD PCI and TAVR. The patient's case has been discussed with the patient and her daughters including her daughter Shobha-the [facility] RN. [] Subjective: The patient is awake and alert with no acute complaints and appears to be resting comfortably at this time. - Physical Exam Vitals/I&O's: Vital Signs Temp Pulse Resp BP Pulse Ox 98.3 F 69 18 144/76 H 94 05/14/20 06:00 05/14/20 09:09 05/14/20 06:00 05/14/20 06:00 05/14/20 07:40 Oxygen Flow Rate (L/min) 2 Oxygen Delivery Method Room Air Weight: 207 lb Body Mass Index (BMI) 33.4 Intake and Output for Last 24 Hours 05/12/20 05/13/20 05/14/20 23:59 23:59 23:59 Intake Total 1420 / 1840 780 / 780 Output Total 350 / 350 Balance 1420 / 1840 430 / 430 General: Alert, Oriented x3, Cooperative, No apparent distress HEENT: Atraumatic, PERRLA, EOMI, Normocephalic Neck: Supple, No JVD Lungs: Clear to auscultation Cardiovascular: Regular rate, Normal S1, Normal S2, Murmur Abdomen: Bowel Sounds Present, Soft, Non Tender Extremities: No edema Neurological: Neuro grossly intact Psych/Mental Status: Normal Affect Comment: Right radial artery area: Positive ecchymoses: Pulse 2+/4+: No bruits Laboratory Results 05/14/20 06:45: WBC 7.2, RBC 5.22, Hgb 14.5, Hct 46.8, MCV 89.7, MCH 27.8, MCHC 31.0 L, RDW Std Deviation 54.7 H, RDW Coeff of Ameya 16.2 H, Plt Count 155, MPV 1 0.3 05/14/20 06:45: Sodium 140, Potassium 4.1, Chloride 108 H, Carbon Dioxide 26.0, Anion Gap 6, BUN 13, Creatinine 1.11 H, Estim Creat Clear Calc 42.26, Est GFR (MDRD) Af Amer 62, Est GFR (MDRD) Non-Af 51 L, BUN/Creatinine Ratio 11.7, Glucose 103, Calcium 9.1, Total Bilirubin 1.00, AST 34, ALT 21, Alkaline Phosphatase 74, Total Protein 6.6, Albumin 3.3, Globulin 3.3, Albumin/Globulin Ratio 1.0 Current Medications Amlodipine Besylate (Amlodipine 2.5 Mg Tablet) 2.5 mg PO DAILY [facility] Last Admin: 05/14/20 09:24 Dose: 2.5 mg Documented by: Aspirin (Aspirin E.C. 81 Mg Tablet) 81 mg PO DAILY@0800 [facility] Last Admin: 05/14/20 09:22 Dose: 81 mg Documented by: Atorvastatin Calcium (Atorvastatin Calcium 40 Mg Tablet) 40 mg PO QHS [facility] Last Admin: 05/13/20 21:52 Dose: 40 mg Documented by: Atropine Sulfate (Atropine Sulfate 1 Mg/10 Ml Syringe) 0.5 mg IV UD PRN PRN Reason: HR <50 bpm Cyanocobalamin (Cyanocobalamin 500 Mcg Tablet) 1,000 mcg PO DAILYCM [facility] Last Admin: 05/14/20 09:22 Dose: 1,000 mcg Documented by: Heparin Sodium (Beef Lung) (Heparin Lock 500 Unit/5 Ml In 10 Ml Syringe) 500 unit IV UD PRN PRN Reason: HEPARIN FLUSH Labetalol HCl (Labetalol (Prefilled) 20 Mg/4 Ml) 5 mg IV X1 PRN PRN Reason: SBP >160 when pulling sheath Stop: 05/15/20 10:28 Sodium Chloride (0.9% Normal Saline 500 Ml Iv.Soln.) 500 ml IV BOLUS PRN PRN Reason: VASO-VAGAL PROTOCOL Ticagrelor (Ticagrelor 90 Mg Tablet) 90 mg PO BID [facility] Last Admin: 05/14/20 09:23 Dose: 90 mg Documented by: Discharge Activity: May Drive - May not drive: X48 hours, May Shower - Shower: Today, May Take a Tub Bath - May take a tub bath: In 7 days May resume sexual activity in: 2 weeks Weight Bearing Status: - - Avoid heavy exertional activity Call your doctor if your incision/area has: Continuous Slow Oozing, Sudden Increased Bleeding, Increased Pain/ Swelling, Increased Redness, Foul Smelling Discharge Call your doctor if you observe: Fever of 101 or Higher, Shortness of breath, Fainting spells, Chest pain Remove Dressing in (days):: 1 Cleanse incision/area with: Soap & Water Home Medications: Medications to take at Discharge coenzyme Q10 30 mg capsule 30 mg PO DAILY 02/05/20 cyanocobalamin (vitamin B-12) 1,000 mcg tablet 1,000 mcg PO DAILY 04/30/20 triamterene 37.5 mg-hydrochlorothiazide 25 mg capsule 1 cap PO DAILY #30 cap 04/30/20 aspirin 81 mg tablet,delayed release 81 mg PO DAILY 05/01/20 Amlodipine [Norvasc] 2.5 mg PO DAILY #30 tab 05/14/20 Atorvastatin Calcium [Lipitor] 40 mg PO QHS tablet 05/14/20 Ticagrelor [Brilinta] 90 mg PO BID #60 tab 05/14/20 Following Prescriptions Were Given to Patient: Ticagrelor [Brilinta] 90 mg PO BID #60 tab Transmission Status: Pending to [id number] Amlodipine [Norvasc] 2.5 mg PO DAILY #30 tab Transmission Status: Pending to [id number] Other Amb Orders: Phase II, Outpatient Cardiac Rehab Location: None Selected Primary Care Physician: Giovanna Wright DO [Primary Care Provider] - Please Follow Up With: Minesh Castillo MD When: JAE to arrange follow up appointment Disposition: Home Minutes spent on discharge:: 45 Patient Condition:: Stable Medical Necessity - Tobacco Use Smoking Status: Never smoker Meaningful Use Info Meaningful Use Diagnoses (Choose all that apply): None applicable
--- NOTE | 2020-05-14 09:51 | CASEMGMT ---
DOUGLAS TOMPKINS NOTE: Pt being discharged home on Brilinta, which has been e-scribed to [facility] pharmacy in [place]. DOUGLAS TOMPKINS to room to talk with pt. Introduced self and role of DOUGLAS TOMPKINS. Brilinta savings card given to pt and instructed on use. She voices understanding. She was made aware, if cost of refills is not affordable, to discuss other options with her oil plant operator. Rody GONZALEZ RN CM
--- NOTE | 2020-05-14 10:00 | EKG12_ITS ---
Test Reason : POST PCI Blood Pressure : / mmHG Vent. Rate : 069 BPM Atrial Rate : 069 BPM P-R Int : 260 ms QRS Dur : 114 ms QT Int : 450 ms P-R-T Axes : 066 002 167 degrees QTc Int : 482 ms Sinus rhythm with 1st degree A-V block ST & T wave abnormality, consider inferolateral ischemia Prolonged QT Poor R-wave progression Abnormal ECG Confirmed by PAMELA LENNON, DAGO ([id number]), video effects editor ABEBE BURRELL ([id number]) on 05/25/2020 8:13:39 AM Referred By: Dago Santiago Confirmed By:DAGO ASNTIAGO MD
--- NOTE | 2020-05-17 11:11 | CL.I_ITS ---
Patient Name: SARAH ALMANZAR Study Date: 05/13/2020 Performing: Bob Park MD Ht: 66 inches 168 cm : 1945 Wt: 207.5 lbs 94 kg Age: 74 Gender: female BSA: 2.03 PROCEDURE(S) PERFORMED DC11-AO ROOT ANGIO WITH HEART CATH [id number] W OR WO PTCA, SINGLE CORONARY ARTERY CLINICAL PROFILE AND CO-MORBIDITIES Indications: Valvular Disease, Pre-Operative Evaluation Heart Failure: None Stress/Imaging Stress/Image Study Performed: No Angina Classification Anginal Classification w/in 2 Weeks: Anginal Equivalent Dyspnea CAD Presentations: Other: dyspnea on exertion CONCLUSIONS Successful PCI with ASCENCION to mLCx. RECOMMENDATIONS DESCRIPTION OF PROCEDURE The patient arrived to the procedure lab. The risks and benefits of the procedure as well as a full d escription of our services here and current unavailability of surgical backup were fully explained to the patient and/or their significant other prior to the catheterization. The Timeout was completed, verifying the correct patient and procedure. The patient's procedural site was prepped and draped in the usual fashion. Local anesthetic was given subcutaneously to right radial region with Lidocaine 2% Using a modified Seldinger technique,arterial access was obtained via the right radial artery, a 6Fr sheath was inserted. Left Coronary Artery selective angiography was performed in multiple views usin g a 5 Fr. 4.0 Garrett catheter. Right Coronary Artery selective angiography was then performed in multi ple views using a 5 Fr. 4.0 Garrett catheter. Ascending (root) aorta selective angiography was then per formed in single view. Ascending (root) aorta selective angiography was then performed in single view.The images were reviewed and options discussed. A decision was then made to proceed with an Intervention, IVUS or other adjunct procedure. XB 3.0 Guide catheter was inserted and engaged into the LCA. BMW Guide wire was advanced to the C ircumflex. Emerge 2.00x8 Balloon catheter was inserted. PTCA balloon inflated at 8 atms for 19 secs. PTCA balloon inflated at 10 atms for 16 secs. Angiogram performed post balloon dilatation. Synergy 3. 50x12 Drug Eluting stent was inserted. Angiogram performed post stent deployment. The arterial elliott th was pulled and a TR Band was applied for hemostasis w/ 16ml air INTERVENTION INFORMATION LESION SITE: Circumflex (Mid) Lesion Complexity: High/C, chronic total occlusion: No, lesion at bifurcation: Yes, thrombus present: No, lesion length: 8 mm, culprit lesion: Yes, Previously treated lesion: No Pre Stenosis: 95 % Pre intervention GAUTAM flow: 3 Pt.'s clinical situation was discussed with Dr. Castillo. Patient had indicated that she did not wan t open heart surgery. The LCx was significantly stenosed and it was felt that overall, even if patien t is not a candidate for TAVR, Proceeding with PCI of LCx was the best plan for now. Post Stenosis: 0 % Post intervention GAUTAM flow: 3 Lesion Devices: Pop .014 BMW Scuddy Straight 190cm Cardinal 6 Fr XB3.0 100cm Guide Catheter Joe Sci EMERGE MR 2.00x08 BALLOON Joe Sci Synergy MR ASCENCION 3.50x12 COMPLICATIONS No Complications PROCEDURE MEDICATIONS Versed 1 mg IV Fentanyl 50 mcg IV Versed 1 mg IV Oxygen: 2 L/min via nasal cannula Brilinta 180 mg PO @ 05/13/2020 09:48:37 Heparin diluted in 23cc Heparinized saline. Patient given 10cc IA of this solution. 05/13/2020 07:59 :14 Labetalol 10 mg 05/13/2020 08:30:48 Labetalol 10 mg 05/13/2020 08:44:56 Heparin 5000 unit(s) IV 05/13/2020 09:47:23 Verapamil 2.5mg, Ntg 100mcgs, 2000 units of Heparin diluted in 23cc Heparinized saline. Patient give n 10cc IA of this solution. 05/13/2020 07:59:14 SUMMARY OF HEMODYNAMIC DATA Time AIR REST ECG 07:15:57 AO 160/94 (123) SA 08:11:30 AO 213/114 (157) 08:29:59 AO 184/89 (126) 09:04:25 Signed By Bob Park MD On 05/17/2020 11:10:52 Bob Park MD
== END 2020-05-14 09:29 | disposition home or self-care (01) ==
LOC: CLSP 06:59 → PCU 05-14 08:42
PROVIDERS: Specialist; PCP Family Medicine; Referring Provider Internal Medicine Cardiovascular Disease; Visit Provider Internal Medicine Cardiovascular Disease
DX: I35.0 Nonrheumatic aortic (valve) stenosis (principal); R06.02 Shortness of breath; R06.09 Other forms of dyspnea; R07.9 Chest pain, unspecified; R01.1 Cardiac murmur, unspecified; I13.0 Hypertensive heart and chronic kidney disease with heart failure and stage 1 through stage 4 chronic kidney disease, or unspecified chronic kidney disease; I50.32 Chronic diastolic (congestive) heart failure; N18.30 Chronic kidney disease, stage 3 unspecified; E66.9 Obesity, unspecified; Z68.33 Body mass index [BMI] 33.0-33.9, adult
CPT/HCPCS: 36415; 71046; 80048; 80053; 85025; 85027; 85610; 85730; 92928; 93005; 93454; 93567; 99152; 99153; J7030; J7040; Q9967; C1725; C1769; C1874; C1887; C1894; C9600; J1327; J2405

== ENCOUNTER → 2020-07-01 12:07 | Outpatient (CLI) | payer MEDICARE, SELFPAY ==
[2020-05-12 07:25] VITALS: BMI 33.4
[2020-07-01 13:59] LABS: Anion Gap 8 (5-15); BUN 15 mg/dL (7-18); BUN/Creat Ratio 9.4 RATIO (10-20); Calcium,Total 9.9 mg/dL (8.5-10.1); Chloride 99 mmol/L (98-107); EST Glomerular Filtration Rate 34 mL/min (>60); Est Glom Filt Rate - Afr Amer 41 mL/min (>60); Glucose 152 mg/dL (74-106); Potassium 3.4 mmol/L (3.5-5.1); Sodium Level 134 mmol/L (136-145)
== END ==
PROVIDERS: PCP Family Medicine
DX: N18.30 Chronic kidney disease, stage 3 unspecified (principal); I35.0 Nonrheumatic aortic (valve) stenosis
CPT/HCPCS: 36415; 80048

== ENCOUNTER → 2020-09-08 12:08 | Outpatient (CLI) | payer MEDICARE, SELFPAY ==
[2020-07-28 10:26] VITALS: BMI 30.9
[2020-09-08 13:07] LABS: Hematocrit 47.3 % (37-47); Hemoglobin 14.7 g/dL (12.0-15.0); Mean Corp Hgb Conc 31.1 g/dL (32-36); Mean Corpuscular Hgb 29.2 pg (27.0-32.0); Mean Platelet Vol. 10.4 fl (6.2-12.0); Platelet Count 230 K/mm3 (150-450); RBC Distribution Width CV 14.8 % (11.6-14.6); RBC Distribution Width SD 51.1 fl (35.1-43.9); Red Blood Count 5.03 M/mm3 (4.2-5.4); White Blood Count 9.3 K/mm3 (4.4-11.0)
[2020-09-08 13:37] LABS: Anion Gap 7 (5-15); BUN 23 mg/dL (7-18); BUN/Creat Ratio 14.9 RATIO (10-20); Calcium,Total 10.2 mg/dL (8.5-10.1); Chloride 101 mmol/L (98-107); Creatinine, Serum 1.54 mg/dL (0.55-1.02); EST Glomerular Filtration Rate 35 mL/min (>60); Est Glom Filt Rate - Afr Amer 42 mL/min (>60); Glucose 105 mg/dL (74-106); Potassium 3.9 mmol/L (3.5-5.1); Sodium Level 137 mmol/L (136-145)
== END ==
PROVIDERS: PCP Family Medicine
DX: I25.10 Atherosclerotic heart disease of native coronary artery without angina pectoris (principal); I44.1 Atrioventricular block, second degree; I12.9 Hypertensive chronic kidney disease with stage 1 through stage 4 chronic kidney disease, or unspecified chronic kidney disease; N18.30 Chronic kidney disease, stage 3 unspecified
CPT/HCPCS: 36415; 80048; 85027

== ENCOUNTER → 2020-09-25 12:32 | Outpatient (CLI) | payer MEDICARE, SELFPAY ==
[2020-07-28 10:26] VITALS: BMI 30.9
[2020-09-25 14:01] LABS: Anion Gap 6 (5-15); BUN 20 mg/dL (7-18); BUN/Creat Ratio 12.4 RATIO (10-20); Calcium,Total 9.5 mg/dL (8.5-10.1); Chloride 103 mmol/L (98-107); Creatinine, Serum 1.61 mg/dL (0.55-1.02); EST Glomerular Filtration Rate 33 mL/min (>60); Est Glom Filt Rate - Afr Amer 40 mL/min (>60); Glucose 97 mg/dL (74-106); Sodium Level 138 mmol/L (136-145)
== END ==
PROVIDERS: PCP Family Medicine
DX: N28.9 Disorder of kidney and ureter, unspecified (principal)
CPT/HCPCS: 36415; 80048

== ENCOUNTER → 2021-05-17 11:11 | Outpatient (CLI) | payer MEDICARE, SELFPAY ==
[2021-05-17 12:19] LABS: AST(SGOT) 28 U/L (15-37); Alanine Aminotransfer ALT/SGPT 22 U/L (13-56); Alkaline Phosphatase 114 U/L (45-117); Cholesterol 126 mg/dL (200); Globulin 4.4 g/dL (2.2-4.2); High Density Lipoprotein 69 mg/dL; Protein, Total 8.4 g/dL (6.4-8.2); Triglycerides 205 mg/dL; Very Low Density Lipoprotein 41 mg/dL (5-40)
== END ==
PROVIDERS: PCP Family Medicine; Referring Provider Internal Medicine Cardiovascular Disease; Visit Provider Internal Medicine Cardiovascular Disease
DX: E78.00 Pure hypercholesterolemia, unspecified (principal)
CPT/HCPCS: 36415; 80061; 80076

== ENCOUNTER → 2021-11-23 | Outpatient (CLI) | payer MEDICARE, SELFPAY ==
--- NOTE | 2021-11-23 11:58 | RAD_ITS ---
STUDY: X-RAY - RIGHT KNEE REASON FOR EXAM: Female, 76 years old. PAIN TECHNIQUE: 4 view(s) of the knee. COMPARISON: None. FINDINGS: There is demineralization of the visualized distal femur. There is demineralization of the tibia and fibula. Normal proximal tibiofibular articulation. Normal medial femorotibial compartment. Normal lateral femorotibial compartment. Normal patellofemoral articulation. The soft tissue structures are unremarkable. RAD/Knee 4 or More Views IMPRESSION: Demineralization of the osseous structures. Electronically Signed: Atul Marr MD at 16:58 EDT ,
--- NOTE | 2021-11-23 12:05 | RAD_ITS ---
STUDY: X-RAY - PELVIS AND RIGHT HIP REASON FOR EXAM: Female, 76 years old. PAIN TECHNIQUE: 3 views of the pelvis and hip. COMPARISON: None. FINDINGS: There is a non-specific bowel gas pattern. Normal visualized soft tissue structures. Normal bilateral iliac wings, sacroiliac joints and visualized sacrum. Normal bilateral superior and inferior pubic rami. Normal pubic symphysis. Normal bilateral ischial tuberosities. There are osteoarthritic changes of the femoral head with marginal osteophyte formation. There is osteoarthritic spur formation of the acetabular rim. There is moderate articular joint space narrowing of the hip. RAD/HIP, UNI W/ Pelvis 2-3 Views IMPRESSION: Moderate arthrosis. Electronically Signed: Atul Marr MD at 17:00 EDT ,
[2021-11-23 13:01] LABS: Absolute Lymphocyte Count 1.82 X10^3/uL (0.83-4.51); Absolute Neutrophil Count 6.1 X10^3/uL (2.0-7.7); Basophil# 0.06 X10^3/uL; Basophil% 0.7 % (0-1); Eosinophil# 0.31 X10^3/uL; Eosinophils% 3.5 % (0-5); Hematocrit 43.3 % (37-47); Hemoglobin 14.1 g/dL (12.0-15.0); Lymphocyte # 1.82 X10^3/ul (0.83-4.51); Lymphocyte % 20.8 % (19-41); Mean Corp Hgb Conc 32.6 g/dL (32-36); Mean Corpuscular Hgb 29.1 pg (27.0-32.0); Mean Corpuscular Volume 89.3 fL (81-99); Monocyte# 0.45 X10^3/uL; Monocyte% 5.1 % (0-10); NRBC Flagged by Analyzer 0 % (0-5); Neutrophil # 6.11 X10^3/uL (2.7-7.7); Neutrophil % 69.7 % (47-70); Platelet Count 197 K/mm3 (150-450); RBC Distribution Width CV 14.3 % (11.6-14.6); RBC Distribution Width SD 46.5 fl (35.1-43.9); Red Blood Count 4.85 M/mm3 (4.2-5.4); White Blood Count 8.8 K/mm3 (4.4-11.0)
[2021-11-23 13:45] LABS: ALB/GLOB Ratio 0.9 RATIO (0.9-2.4); AST(SGOT) 19 U/L (15-37); Alanine Aminotransfer ALT/SGPT 19 U/L (13-56); Albumin, Serum 3.6 g/dL (3.2-5.0); Alkaline Phosphatase 101 U/L (45-117); Anion Gap 8 (5-15); BUN 16 mg/dL (7-18); BUN/Creat Ratio 9.5 RATIO (10-20); Calcium,Total 9.5 mg/dL (8.5-10.1); Chloride 103 mmol/L (98-107); Creatinine, Serum 1.68 mg/dL (0.55-1.02); EST Glomerular Filtration Rate 32 mL/min (>60); Est Glom Filt Rate - Afr Amer 38 mL/min (>60); Free T3 2.3 pg/mL (2.18-3.98); Globulin 4.2 g/dL (2.2-4.2); Glucose 102 mg/dL (74-106); Potassium 4.3 mmol/L (3.5-5.1); Protein, Total 7.8 g/dL (6.4-8.2); Sodium Level 137 mmol/L (136-145); Thyroid Stim Hormone (TSH) 4.07 uIU/mL (0.358-3.74)
== END | disposition home or self-care (01) ==
PROVIDERS: PCP Family Medicine; Referring Provider Family Medicine; Visit Provider Family Medicine
DX: R79.89 Other specified abnormal findings of blood chemistry (principal); R73.03 Prediabetes; M25.561 Pain in right knee; M25.551 Pain in right hip; Z51.81 Encounter for therapeutic drug level monitoring
CPT/HCPCS: 36415; 73502; 73564; 80053; 83036; 84439; 84443; 84481; 85025

== ENCOUNTER 2024-07-17 16:34 | Inpatient (IN) | payer MEDICARE, SELFPAY ==
[2024-07-17] VITALS (7 sets, daily range): BP systolic 156–168; BP diastolic 58–84; PULSE 72–87; RESP 18–20; TEMP 36.2–36.5; O2SAT 92–100; BMI 37.6
--- NOTE | 2024-07-17 18:23 | CT_ITS ---
PROCEDURE: CT abdomen pelvis with IV contrast REASON FOR EXAM: Flank pain TECHNIQUE: Multiple contiguous axial images through the abdomen and pelvis were obtained after the administration of intravenous contrast. Two-dimensional coronal and sagittal reformatted images were reconstructed. Low-dose imaging technique was utilized. COMPARISON: None. FINDINGS: No acute findings in the lung bases. Mild bibasilar atelectasis. Mild cardiomegaly. Coronary artery calcifications. Aortic valve prosthesis. Liver, spleen, pancreas and adrenal glands are intact. Dilated gallbladder without wall thickening or inflammation. Moderate diffuse dilation of the common bile duct measuring up to 13 mm. No calcified internal filling defects. No intrahepatic biliary ductal dilation. Moderate bilateral renal atrophy with striated nephrograms. No renal calculi or hydronephrosis. Urinary bladder is within normal limits. Uterus is absent. Small amount of gas in the vaginal pouch. Punctate focus of gas also extends from the vaginal pouch toward the sigmoid colon which could relate to underlying fistula. Distal colonic diverticulosis. Diffuse gaseous distention of the colon. No bowel obstruction, focal bowel wall thickening or significant perienteric inflammation. No pelvic free fluid. No free air. Calcified nonaneurysmal abdominal aorta. No suspicious adenopathy. Large lateral abdominal wall hernia containing a couple of large and small bowel loops without evidence of strangulation/obstruction. Diffuse subcutaneous edema along the right flank without a focal fluid collection. No acute osseous abnormality. Mild degenerative changes of the spine. Severe right hip osteoarthritis. Mild chronic appearing compression deformity of L1. CT/Abdomen/Pelvis W IV Cont ONLY IMPRESSION: 1. Mild diffuse subcutaneous edema along the right flank without a focal fluid collection. 2. Large right lateral abdominal wall hernia containing large and small bowel l oops without evidence of strangulation/obstruction. 3. Mildly dilated gallbladder without secondary signs of acute cholecystitis. Diffuse dilation of the common bile duct measuring 13 mm. No intrahepatic ductal dilation. 4. Small amount of gas in the vaginal pouch with a small adjacent focus of gas between the sigmoid colon and vaginal cuff. Underlying fistula not excluded. Please correlate. 5. Bilateral renal atrophy with striated nephrograms which can be seen with acu te kidney injury (ATN) and pyelonephritis amongst other etiologies. Please correlate. One or more dose reduction techniques were used (e.g., Automated exposure contr ol, adjustment of the mA and/or kV according to patient size, use of iterative reconstruction technique). Reading Location: [facility]
--- NOTE | 2024-07-17 18:25 | EX.ED.DYSGE1 ---
HPI History of Present Illness Chief Complaint: Flank Pain Informant: patient Onset/Context/Timing Onset: Days (2) Context: Sudden Onset Timing: Continuous Quality: Sharp Location: Right flank and right lower chest Worsened by: Coughing Relieved by: Nothing Narrative Narrative: Patient presents with right flank pain that has been getting worse over the past 2 days. Patient states it is constant. Patient describes her pain as sharp. Patient states it is worse with coughing. Patient states she saw her primary care physician who prescribed her Zithromax and a cough medicine. Patient admits to some subjective fevers. Patient states her pain does radiate and her back. Patient denies any falls or trauma. Patient denies any injury. Patient denies any nausea or vomiting. Patient denies any urinary complaints. PFSH PFSH Medical History HLD (hyperlipidemia) Presence of stent in coronary artery (~05/13/20) Atherosclerotic heart disease of [place] coronary artery without angina pectoris Cardiac murmur CKD (chronic kidney disease) stage 3, GFR 30-59 ml/min Hypothyroidism Left atrial enlargement Left ventricular hypertrophy Nonrheumatic aortic (valve) stenosis Essential hypertension Fatigue Heart disease SOB (shortness of breath) Home Medications ?Medication ?Instructions ?Recorded ?Last Taken ?Type coenzyme Q10 30 mg capsule (CoQ-10) 30 mg PO DAILY supplimentation 02/05/20 Unknown History cyanocobalamin (vitamin B-12) 1,000 mcg PO DAILY supplimentation 04/30/20 Unknown History 1,000 mcg tablet triamterene 37.5 1 cap PO DAILY bp #30 caps 04/30/20 Unknown Rx mg-hydrochlorothiazide 25 mg capsule aspirin 81 mg tablet,delayed 81 mg PO DAILY asa 05/01/20 05/13/20 History release (Adult Low Dose Aspirin) azithromycin 250 mg tablet 250 mg PO DAILY cough 07/17/24 Unknown History benzonatate 100 mg capsule 100 mg PO TID PRN PRN cough 07/17/24 Unknown History prednisone 20 mg tablet 60 mg PO DAILY cough 07/17/24 Unknown History tramadol 50 mg tablet 50 mg PO Q8H PRN PRN pain 07/17/24 Unknown History Allergy/AdvReac Type Severity Reaction Status Date / Time No Known Allergies Allergy Verified 07/17/24 16:35 Family History Mother Myocardial infarction Heart disease Hypertension Father Heart disease Brother Heart disease Sister CVA (cerebral vascular accident) Brother Brain aneurysm Other Cancer Diabetes Surgical History Presence of coronary angioplasty implant and graft (~05/13/20) History of hysterectomy Social History (Updated 07/17/24 @ 19:24 by Sloane Hooker) household members: children Smoking Status: Never smoker alcohol intake: never substance use type: does not use caffeine: Yes Type: coffee Number of servings: 1 ROS ROS ED Constitutional Constitutional ED: Reports fever(s) and subjective; Denies chills Eyes Eyes: Denies blurry vision or change in vision ENT ENT ED: Denies rhinorrhea or sore throat Cardiovascular Cardiovascular: Reports chest pain; Denies palpitations Respiratory/Chest Respiratory/Chest: Reports cough; Denies dyspnea Gastrointestinal Gastrointestinal: Denies nausea or vomiting Genitourinary Genitourinary ED: Denies dysuria or hematuria Musculoskeletal Musculoskeletal: Reports back pain; Denies neck pain Integumentary Denies abscess or rash Neurologic Neurologic: Denies headache(s) or weakness Hematologic/Lymphatic Hematologic/Lymphatic: Denies easy bleeding or easy bruising Allergic/Immunologic Allergic/Immunologic ED: Denies mouth swelling or urticaria EXAM Physical Exam Const Vital Signs: 07/17/24 16:35 07/17/24 19:23 07/17/24 21:14 Temperature 97.2 F L Temperature Source Temporal Pulse Rate 83 72 74 Respiratory Rate 20 H 20 H 18 Blood Pressure 161/74 H 156/84 H 166/76 H Blood Pressure Mean 103 108 106 Pulse Ox 100 93 97 Oxygen Delivery Method Room Air Nasal Cannula Nasal Cannula Oxygen Flow Rate (L/min) 2 2 Positive well nourished and well developed General Appearance ED: well developed and NAD HEENT Reports moist mucous membranes Neck supple and no JVD Resp normal respiratory effort and clear to auscultation bilaterally Cardio regular rate and regular rhythm GI GI Narrative: There is a large hematoma over the right costovertebral angle and right flank area. There is mild tenderness over the right lower ribs. There is no bony crepitance or step-off. Abdomen is otherwise soft and nontender. There is no rebound or guarding noted. Extremity Extremity Narrative: There is bluish discoloration of the feet bilaterally. Sensation was intact to light touch in all digits. There is good range of motion. Family states patient has had this discoloration and this is not new. Neuro oriented x3, CN's II-XII intact bilaterally and no sensory deficits noted Sensorium / Orientation: alert Motor Exam: strength 5/5 throughout Psych mental status grossly normal MDM MDM MDM Narrative Medical decision making narrative: Differential diagnosis includes pneumonia, rib fracture, hematoma, retroperitoneal hematoma, pyelonephritis, urinary calculus, urinary tract infection, pneumothorax, hemothorax, coagulopathy, viral illness, sepsis, pancreatitis, and anemia. Chest x-ray will be obtained to assess for pneumonia, pleural effusion, and bronchitis. EKG will be obtained to assess for cardiac dysrhythmia and cardiac ischemia. CBC will be obtained to assess for leukocytosis and anemia. Comprehensive metabolic profile obtained to assess for hepatic function, renal function, and electrolyte abnormality. High-sensitivity troponin will be obtained to assess for cardiac ischemia. Lipase will be obtained to assess for pancreatitis. PT with INR and PTT will be obtained to assess for coagulopathy. Urinalysis will be obtained to assess for urinary tract infection and hematuria. Serum lactate will be obtained to assess for sepsis. COVID-19, influenza, and RSV PCR will be obtained to assess for viral illness. Lab Data Attestation: I reviewed the patient's lab results. Lab results narrative: CBC was reviewed. There is a leukocytosis of 21.0. Hemoglobin was 1521 and hematocrit was 43.5. PT with INR and PTT were reviewed and were within normal limits. Comprehensive metabolic profile was reviewed. Sodium was low at 116. Potassium was 5.2 but was mildly hemolyzed. Chloride was low at 80. BUN was 25 and creatinine was 1.7. These are consistent with previous results. Glucose was 162. Serum and left serum lactate was reviewed and was elevated at 2.9. High-sensitivity troponin was reviewed and was slightly elevated at 147. Lipase was reviewed and was normal at 29. Urinalysis was reviewed. Leukocyte esterase was 25. There are 0-5 white blood cells but 2+ bacteria. Labs: Laboratory Results - last 24 hr 07/17/24 07/17/24 07/17/24 18:25 18:41 22:09 WBC 21.0 H RBC 5.31 Hgb 15.1 H Hct 43.5 MCV 81.9 MCH 28.4 MCHC 34.7 RDW Std Deviation 39.5 RDW Coeff of Ameya 13.5 Plt Count 346 MPV 10.7 Immature Gran % (Auto) 0.800 Neut % (Auto) 94.9 H Lymph % (Auto) 1.9 L Dickenson % (Auto) 2.3 Eos % (Auto) 0.0 Baso % (Auto) 0.1 Absolute Neuts (auto) 19.9 H Absolute Lymphs (auto) 0.40 L Nucleated RBC % 0 PT 12.8 INR 0.9 APTT 22.8 L Sodium 116 L* Potassium 5.2 H Chloride 80 L Carbon Dioxide 22.0 Anion Gap 14 BUN 25 H Creatinine 1.70 H Est GFR (MDRD) Af Amer 37 L Est GFR (MDRD) Non-Af 31 L BUN/Creatinine Ratio 14.7 Glucose 162 H Lactic Acid 2.9 H* Calcium 9.5 Total Bilirubin 0.70 AST 62 H ALT 36 Alkaline Phosphatase 101 Troponin I High Sens 147 H* Total Protein 7.3 Albumin 3.4 Globulin 3.9 Albumin/Globulin Ratio 0.9 Lipase 29 L Urine Color Yellow Urine Clarity Clear Urine pH 5.0 Ur Specific [place] 1.015 Urine Protein 30 H Urine Glucose (UA) Normal Urine Ketones Negative Urine Occult Blood 10 H Urine Nitrite Negative Urine Bilirubin Negative Urine Urobilinogen 1 H Ur Leukocyte Esterase 25 H Urine RBC 0-5 SEEN Urine WBC 0-5 SEEN Ur Squamous Epith Cells 0 SEEN Urine Bacteria 2+ Hyaline Casts 0-5 SEEN Urine Mucus 0 SEEN Radiography Diagnostic Testing: Clinical Impression(s) from Imaging Studies Abdomen/Pelvis CT 07/17/24 18:23 IMPRESSION: 1. Mild diffuse subcutaneous edema along the right flank without a focal fluid collection. 2. Large right lateral abdominal wall hernia containing large and small bowel loops without evidence of strangulation/obstruction. 3. Mildly dilated gallbladder without secondary signs of acute cholecystitis. Diffuse dilation of the common bile duct measuring 13 mm. No intrahepatic ductal dilation. 4. Small amount of gas in the vaginal pouch with a small adjacent focus of gas between the sigmoid colon and vaginal cuff. Underlying fistula not excluded. Please correlate. 5. Bilateral renal atrophy with striated nephrograms which can be seen with acute kidney injury (ATN) and pyelonephritis amongst other etiologies. Please correlate. One or more dose reduction techniques were used (e.g., Automated exposure control, adjustment of the mA and/or kV according to patient size, use of iterative reconstruction technique). [facility] 07/17/24 19:40 IMPRESSION: Cardiomegaly without focal airspace abnormality. Reading Location: [facility] CT scan of the abdomen and pelvis was obtained. There is mild diffuse subcutaneous edema along the right flank. There is no focal fluid collection. There is a large right lateral abdominal wall hernia but no evidence of strangulation or obstruction. There is a mildly dilated gallbladder but no signs of cholecystitis. There is a small amount of gas in the vaginal pouch and a small adjacent focus of gas between the sigmoid colon and vaginal cuff. This was interpreted by the radiologist and was also independently reviewed by myself. PA and lateral chest x-ray was obtained. There are 2 views. On my independent interpretation, lung murray are clear. There is cardiomegaly noted. Bony thorax is normal. There is no acute process noted. Radiologist also interpreted the x-ray and agrees. EKG Initial EKG: Attestation: I personally reviewed and interpreted this EKG as follows: Interpretation: Sinus Rhythm (72) and LBBB Comments: EKG was obtained. On my independent interpretation, shows sinus rhythm with a first-degree AV block with a rate of 72. [place] interval slightly prolonged at 208 ms. QRS interval was prolonged at 194 ms. QTc interval is 534 ms. There is left axis deviation at -21. There is a left bundle branch block pattern noted. Management Discussion w/another healthcare provider: Hospitalist Treatment and Re-Evaluation :: Patient was given morphine and Zofran. Patient was given IV fluids. Patient was given a dose of Dilaudid. Blood and urine cultures were obtained. Patient and family were advised of the findings. Patient was given a dose of Zosyn. Case was discussed with hospitalist. She will admit the patient to ICU. Patient and family understood and were agreeable with the plan. All questions were answered. Critical Care Time Critical Care Time: Yes Critical care time (excluding procedures): 30-74 minutes (32), Including time spent:, Discussing w/Patient &/or Family/Tanning Wheel Filler, Discussing w/Consultants, Arranging Admission or Transfer and Performing Direct Patient Care at Bedside Discharge Plan Dx/Rx/DC Orders Clinical Impression: Acute hyponatremia, CKD (chronic kidney disease) stage 3, GFR 30-59 ml/min, S/P TAVR (transcatheter aortic valve replacement), Essential hypertension, Right flank hematoma Disposition Disposition: [facility] Discharge Date/Time: 07/17/24 23:33
[2024-07-17 19:09] LABS: Absolute Neutrophil Count 19.9 X10^3/uL (2.0-7.7); Basophil# 0.03 X10^3/uL; Basophil% 0.1 % (0-1); Hematocrit 43.5 % (37-47); Hemoglobin 15.1 g/dL (12.0-15.0); Lymphocyte % 1.9 % (19-41); Mean Corp Hgb Conc 34.7 g/dL (32-36); Mean Corpuscular Hgb 28.4 pg (27.0-32.0); Mean Corpuscular Volume 81.9 fL (81-99); Mean Platelet Vol. 10.7 fl (6.2-12.0); Monocyte# 0.48 X10^3/uL; Monocyte% 2.3 % (0-10); NRBC Flagged by Analyzer 0 % (0-5); Neutrophil # 19.94 X10^3/uL (2.7-7.7); Neutrophil % 94.9 % (47-70); POSITIVE DIFFERENTIAL YES; Platelet Count 346 K/mm3 (150-450); RBC Distribution Width CV 13.5 % (11.6-14.6); RBC Distribution Width SD 39.5 fl (35.1-43.9); Red Blood Count 5.31 M/mm3 (4.2-5.4)
[2024-07-17] MEDS: Morphine 4 MG/ML Syringe IV (19:18)
[2024-07-17] MEDS: Ondansetron 4 MG/2 ML Vial IV (19:18)
[2024-07-17 19:22] LABS: International Normalized Ratio 0.9; Prothrombin Time (Protime)PT. 12.8 SECONDS (11.7-14.9)
[2024-07-17 19:27] LABS: ALB/GLOB Ratio 0.9 RATIO (0.9-2.4); AST(SGOT) 62 U/L (15-37); Alanine Aminotransfer ALT/SGPT 36 U/L (13-56); Albumin, Serum 3.4 g/dL (3.2-5.0); Alkaline Phosphatase 101 U/L (45-117); Anion Gap 14 (5-15); BUN 25 mg/dL (7-18); BUN/Creat Ratio 14.7 RATIO (10-20); Calcium,Total 9.5 mg/dL (8.5-10.1); Chloride 80 mmol/L (98-107); EST Glomerular Filtration Rate 31 mL/min (>60); Est Glom Filt Rate - Afr Amer 37 mL/min (>60); Globulin 3.9 g/dL (2.2-4.2); Glucose 162 mg/dL (74-106); Lipase 29 U/L (73-393); Partial Thromboplast Time 22.8 Seconds (24.1-36.2); Potassium 5.2 mmol/L (3.5-5.1); Protein, Total 7.3 g/dL (6.4-8.2); Sodium Level 116 mmol/L (136-145); Troponin-I HS 147 pg/mL (3.0-54.0)
[2024-07-17 19:28] LABS: Lactic Acid 2.9 mmol/L (0.4-1.9)
--- NOTE | 2024-07-17 19:40 | RAD_ITS ---
PROCEDURE: Chest radiographs REASON FOR EXAM: Cough TECHNIQUE: Two views of the chest COMPARISON: 02/10/2020 FINDINGS: Unchanged eventration of the right hemidiaphragm. Mild cardiomegaly. Aortic valve prosthesis. Prominent central pulmonary arteries. No focal consolidation, pleural effusion or sizable pneumothorax. RAD/Chest PA and Lateral IMPRESSION: Cardiomegaly without focal airspace abnormality. Reading Location: [facility]
[2024-07-17 22:16] LABS: Mucous, Urine 0 SEEN /hpf (<or=2+); Squamous Epithelial Cells - UA 0 SEEN /hpf (5-10)
[2024-07-17 22:19] LABS: Color, Urine Yellow (Yellow); Glucose, Dipstick Normal (Normal); Ketone-Dipstick Negative (Negative); Leukocyte Esterase-Dipstick 25 /ul (Negative); Nitrite-Dipstick Negative (Negative); Occult Blood-Urine 10 /ul (Negative); Protein-Dipstick 30 mg/dl (Negative); Specific Gravity, Urine 1.015 (1.002-1.030); Urine Bilirubin Dipstick Negative (Negative); Urine Clarity Clear (Clear); Urine Urobilinogen 1 mg/dl (Normal)
[2024-07-17 22:28] LABS: Bacteria 2+ /hpf (None Seen); Hyaline Cast 0-5 SEEN /lpf (0-5); Red Blood Cells-Urine 0-5 SEEN /hpf (0-5); White Blood Cells 0-5 SEEN /hpf (0-5)
--- NOTE | 2024-07-17 22:32 | PCM.HP.STD ---
HPI - General General Date of Admission: 07/17/24 Date of Service: 07/17/24 Chief Complaint: R flank discomfort HPI Narrative The patient is a 79 y/o F w/ PMHx: CAD s/p PCI, Valvular Heart Disease s/p TAVR, CKD stage III unclear subtype per GFR trending, Hypothyroidism, Obesity, HTN, HLD, obvious bilateral lower extremity concern for PAD with notable skin changes with dusky hue and cooler to touch since patient's TAVR in 2020 however she is refused all workup despite family concerns of note who presents to the [facility] ED on 07/17/24 with history of onset of URI type symptoms approximately 8 days prior with cough, congestion, sore throat, rhinorrhea, headache and dyspnea with no nausea, emesis or diarrhea but general fatigue and malaise with then onset approximately 4 to 5 days previous to current presentation a small hematoma to the right lateral flank however this progressively increased in size over the last several days and is severely uncomfortable with pain rated 10 out of 10 in severity, severe sharp especially with coughing fits and now patient has a significant hematoma and swelling to the entire right lateral flank and right abdomen prompting family to eventually bring patient in as she had been resistant and refused initially but given pain eventually relented. Workup in the ED included CBC with WBC 21, hemoglobin 15.1, MCV 81.9, platelet 346 with significant left shift and lymphopenia, coags unremarkable aside PTT 22.8, CMP with sodium 116, potassium 5.2 noted to be mildly hemolyzed, chloride 80, BUN/creatinine 25/1.70, GFR 31, glucose 162, lactic acid initial 2.9 with repeat 1.1, AST 62 otherwise hepatic profile not marked appearing, initial troponin 147, urinalysis with specific cavity 1.015, protein 30, occult blood 10, negative nitrite, leukocyte esterase 25 but no urine WBCs or RBCs with 2+ urine bacteria, urine culture pending per ED, chest x-ray with cardiomegaly with no acute cardiopulmonary findings, CT abdomen and pelvis with IV contrast with mild diffuse subcutaneous edema along the right flank without any focal fluid collection, large right lateral abdominal wall hernia containing large and small bowel loops without any evidence of strangulation or obstruction, mildly dilated gallbladder without any secondary signs of infection with diffuse dilatation of the common bile duct measuring 13 mm with no intrahepatic ductal dilatation, small amount of gas in the vaginal pouch with a small adjacent foci of gas between the sigmoid colon and vaginal cuff, bilateral renal atrophy with striated nephrograms possibly seen in HILARIO or other etiologies. In the ED patient ministered 1 L normal saline, Dilaudid 0.5 mg x 1, morphine 4 mg IV x 1, Zofran 4 mg IV x 1, IV Zosyn 4.5 g x 1. PFSH Medical History HLD (hyperlipidemia) Presence of stent in coronary artery (~05/13/20) Atherosclerotic heart disease of [place] coronary artery without angina pectoris Cardiac murmur CKD (chronic kidney disease) stage 3, GFR 30-59 ml/min Hypothyroidism Left atrial enlargement Left ventricular hypertrophy Nonrheumatic aortic (valve) stenosis Essential hypertension Fatigue Heart disease SOB (shortness of breath) Home Medications ?Medication ?Instructions ?Recorded ?Last Taken ?Type coenzyme Q10 30 mg capsule (CoQ-10) 30 mg PO DAILY supplimentation 02/05/20 Unknown History cyanocobalamin (vitamin B-12) 1,000 mcg PO DAILY supplimentation 04/30/20 Unknown History 1,000 mcg tablet triamterene 37.5 1 cap PO DAILY bp #30 caps 04/30/20 Unknown Rx mg-hydrochlorothiazide 25 mg capsule aspirin 81 mg tablet,delayed 81 mg PO DAILY asa 05/01/20 05/13/20 History release (Adult Low Dose Aspirin) azithromycin 250 mg tablet 250 mg PO DAILY cough 07/17/24 Unknown History benzonatate 100 mg capsule 100 mg PO TID PRN PRN cough 07/17/24 Unknown History prednisone 20 mg tablet 60 mg PO DAILY cough 07/17/24 Unknown History tramadol 50 mg tablet 50 mg PO Q8H PRN PRN pain 07/17/24 Unknown History Allergy/AdvReac Type Severity Reaction Status Date / Time No Known Allergies Allergy Verified 07/17/24 16:35 Family History Mother Myocardial infarction Heart disease Hypertension Father Heart disease Brother Heart disease Sister CVA (cerebral vascular accident) Brother Brain aneurysm Other Cancer Diabetes Surgical History Presence of coronary angioplasty implant and graft (~05/13/20) History of hysterectomy Social History household members: children Smoking Status: Never smoker alcohol intake: never substance use type: does not use caffeine: Yes Type: coffee Number of servings: 1 ROS ROS Narrative Admission Review of Systems: CONSTITUTIONAL: No weight loss, low-grade +fever, chills, weakness or fatigue. HEENT: + Cough, congestion, sore throat, rhinorrhea. Eyes: No visual loss, blurred vision, double vision or yellow sclerae. Ears, Nose, Throat: No hearing loss, sneezing. SKIN: No rash or itching, lesions, wounds. CARDIOVASCULAR: No chest pain, chest pressure or chest discomfort, palpitations, edema, orthopnea, syncopal events. RESPIRATORY: + Dyspnea, cough. No wheezing, hemoptysis. GASTROINTESTINAL: + Significantly decreased appetite. No nausea, vomiting or diarrhea, abdominal pain, melena, BRBPR. GENITOURINARY: No dysuria, frequency, urgency or retention. NEUROLOGICAL: + Headache. No dizziness, syncope, paralysis, ataxia, numbness or tingling in the extremities, focal weakness, change in bowel or bladder control, seizure. MUSCULOSKELETAL: + muscle, back pain, joint pain or stiffness. HEMATOLOGIC: No anemia. + As noted recent history of bleeding/bruising with hematoma to the right flank/abdomen. LYMPHATICS: No enlarged nodes. No history of splenectomy. PSYCHIATRIC: No history of depression or anxiety. ENDOCRINOLOGIC: + reports of sweating, cold or heat intolerance. No polyuria or polydipsia. ALLERGIES: No history of asthma, hives, eczema or rhinitis. Vital Signs Vital Signs Vital Signs: 07/17/24 16:35 07/17/24 19:23 07/17/24 21:14 Temperature 97.2 F L Temperature Source Temporal Pulse Rate 83 72 74 Respiratory Rate 20 H 20 H 18 Blood Pressure 161/74 H 156/84 H 166/76 H Blood Pressure Mean 103 108 106 Pulse Ox 100 93 97 Oxygen Delivery Method Room Air Nasal Cannula Nasal Cannula Oxygen Flow Rate (L/min) 2 2 Weight Weight: 233 lb 7.512 oz Body Mass Index (BMI) 37.6 Physical Exam Narrative Physical Examination: General: Awake, alert, oriented to self, place and recent events although she is becoming more fatigued and lethargic as she was recently administered Dilaudid, still having pain to the right flank and abdomen especially with any coughing fits in the ED which her current intermittently through the evaluation, patient is uncomfortable intermittently. Skin: Normal color, normal turgor, no icterus, no cyanosis except for significant right lateral flank and abdomen obvious severe bruising/hematoma suspected with significantly increased size and tenderness to palpation. HEENT: AT/NC, EOMI, PERRLA, dry MM, no carotid bruits or JVD noted. Lungs: Diminished, greater bases, mildly rhonchorous, some upper airway secretions obvious with patient reticent to cough because of flank discomfort, no current wheezing noted. Heart: Regular rate and rhythm; no gallop, rub audible. Abdomen: Soft, obese, notable tenderness anywhere near the right lateral flank and side of the abdomen, distended region on that right lateral abdomen, distant BS, difficult to assess HSM given pain with evaluation especially the right abdomen. Extremities: No cyanosis, no clubbing, bilateral distal lower extremity edema, unchanged, chronic. Neurological: Patient awake, alert, oriented as noted, cognitive function intact although patient is becoming more fatigued and lethargic but recently received Dilaudid of note; pupils equally reactive to light and accommodation, cranial nerves grossly normal, moving all 4 extremities, no focal deficits, strength severely globally decreased per Psychiatric: Affect appears uncomfortable, tearful, does have underlying anxiety per discussion with family, no acute evidence of depressive feelings. Results Lab / Micro Data 07/17/24 18:25 07/17/24 18:25 Labs: Laboratory Results - last 24 hr 07/17/24 18:25: WBC 21.0 H, RBC 5.31, Hgb 15.1 H, Hct 43.5, MCV 81.9, MCH 28.4, MCHC 34.7, RDW Std Deviation 39.5, RDW Coeff of Ameya 13.5, Plt Count 346, MPV 10.7, Immature Gran % (Auto) 0.800, Neut % (Auto) 94.9 H, Lymph % (Auto) 1.9 L, [place] % (Auto) 2.3, Eos % (Auto) 0.0, Baso % (Auto) 0.1, Absolute Neuts (auto) 19.9 H, Absolute Lymphs (auto) 0.40 L, Nucleated RBC % 0, PT 12.8, INR 0.9, APTT 22.8 L, Sodium 116 L*, Potassium 5.2 H, Chloride 80 L, Carbon Dioxide 22.0, Anion Gap 14, BUN 25 H, Creatinine 1.70 H, Est GFR (MDRD) Af Amer 37 L, Est GFR (MDRD) Non-Af 31 L, BUN/Creatinine Ratio 14.7, Glucose 162 H, Calcium 9.5, Total Bilirubin 0.70, AST 62 H, ALT 36, Alkaline Phosphatase 101, Troponin I High Sens 147 H*, Total Protein 7.3, Albumin 3.4, Globulin 3.9, Albumin/Globulin Ratio 0.9, Lipase 29 L 07/17/24 18:41: Lactic Acid 2.9 H* 07/17/24 22:09: Urine Color Yellow, Urine Clarity Clear, Urine pH 5.0, Ur Specific [place] 1.015, Urine Protein 30 H, Urine Glucose (UA) Normal, Urine Ketones Negative, Urine Occult Blood 10 H, Urine Nitrite Negative, Urine Bilirubin Negative, Urine Urobilinogen 1 H, Ur Leukocyte Esterase 25 H, Urine RBC 0-5 SEEN, Urine WBC 0-5 SEEN, Ur Squamous Epith Cells 0 SEEN, Urine Bacteria 2+, Hyaline Casts 0-5 SEEN, Urine Mucus 0 SEEN Micro: Microbiology 07/17/24 18:30 Mucosa - Nose SARS-CoV-2, Influenza & RSV (PCR) - Final Imaging Radiology Impression Abdomen/Pelvis CT 07/17/24 18:23 IMPRESSION: 1. Mild diffuse subcutaneous edema along the right flank without a focal fluid collection. 2. Large right lateral abdominal wall hernia containing large and small bowel loops without evidence of strangulation/obstruction. 3. Mildly dilated gallbladder without secondary signs of acute cholecystitis. Diffuse dilation of the common bile duct measuring 13 mm. No intrahepatic ductal dilation. 4. Small amount of gas in the vaginal pouch with a small adjacent focus of gas between the sigmoid colon and vaginal cuff. Underlying fistula not excluded. Please correlate. 5. Bilateral renal atrophy with striated nephrograms which can be seen with acute kidney injury (ATN) and pyelonephritis amongst other etiologies. Please correlate. One or more dose reduction techniques were used (e.g., Automated exposure control, adjustment of the mA and/or kV according to patient size, use of iterative reconstruction technique). Reading Location: [facility] Chest X-Ray 07/17/24 19:40 IMPRESSION: Cardiomegaly without focal airspace abnormality. Reading Location: [facility] Assessment & Plan Assessment/Plan (1) Acute hyponatremia: (2) Right flank hematoma: PLAN: Plan The patient is a 79 y/o F w/ PMHx: CAD s/p PCI, Valvular Heart Disease s/p TAVR, CKD stage III unclear subtype per GFR trending, Hypothyroidism, Obesity, HTN, HLD, obvious bilateral lower extremity concern for PAD with notable skin changes with dusky hue and cooler to touch since patient's TAVR in 2020 however she is refused all workup despite family concerns of note who presents to the [facility] ED on 07/17/24 with history of onset of URI type symptoms approximately 8 days prior with cough, congestion, sore throat, rhinorrhea, headache and dyspnea with no nausea, emesis or diarrhea but general fatigue and malaise with then onset approximately 4 to 5 days previous to current presentation a small hematoma to the right lateral flank however this progressively increased in size over the last several days and is severely uncomfortable with pain rated 10 out of 10 in severity, severe sharp especially with coughing fits and now patient has a significant hematoma and swelling to the entire right lateral flank and right abdomen prompting family to eventually bring patient in as she had been resistant and refused initially but given pain eventually relented. #1. SIRS with lactic acidosis although improving with concern for acute recent viral syndrome with possible now acute clinical pneumonia with acute hypoxia in addition to concern for possible right-sided flank/abdominal hematoma potentially infected versus other infectious source yet to be determined: Will admit to the ICU given significant lecture light disturbances concurrently, maintain on oxygen with wean as tolerated to room air, maintain on ATC budesonide therapy, PRN albuterol, maintain on IV Zosyn and Vancomycin, HOB, IS parameters w/ pending sputum cultures, full respiratory viral panel and urine antigens. Urine culture pending per ED. Bld cx x 2 obtained in the ED. given concern for possible right flank/abdominal hematoma as patient has significant pain worse with coughing will place abdominal binder to attempt to ease discomfort but also size, holding antiplatelet therapy, per discussion with family will consult plastic surgery for evaluation. PT/OT/case management consulted for discharge planning. #2. Elevated troponin of unclear significance, possibly demand: Admission EKG with no acute evidence of ischemia, initial troponin 147, chest x-ray with no acute findings but again suspected recent acute viral syndrome and possible superimposed infection now at this time, will maintain on telemetry, continue to cycle cardiac enzymes, echocardiogram requested, given concern for right sided significant hematoma will defer aspirin therapy load or heparin/Lovenox at this time. Echocardiogram requested. Pending trending may consider involvement of cardiology. #3. Acute hyponatremia, suspected hypovolemic component given recent decreased oral intake secondary to pain related with right flank/abdominal hematoma: Admission sodium 116, previous levels normal, chloride 80, previous levels normal, will continue to very judiciously hydrate, will obtain repeat BMP every 2 hours to ensure not correcting too quickly, although suspect as noted hypovolemic etiology to be cautious will obtain FeNa, UOsm, TSH, Mag. May consider Nephrology involvement if not improving or trending of repeat BMP not improving, will defer/give hypertonic saline given no reported headache, nausea, ataxia, confusion. #4. Incidentally noted diffuse dilatation of the common bile duct: CT abdomen and pelvis with mildly dilated gallbladder with no signs of acute infection however there is noted diffuse dilatation of the common bile duct measuring 13 mm but there is no intrahepatic ductal dilatation, will repeat CMP in a.m., no obvious LFT elevation. #5. Incidentally noted questionable sigmoid colon and vaginal cuff fistula: CT imaging with noted small amount of gas in the vaginal pouch with a small adjacent focus of gas between the sigmoid colon and vaginal cuff, unable to exclude an underlying fistula at this time, will benefit from follow-up with surgery/gynecology per patient preference. Patient has refused to see vascular surgery in follow-up for her bilateral lower extremity evidence concern for ischemic limb but she may decide not to follow this. #6. Bilateral lower extremity evidence of ischemic limb, refusing treatment: Patient since her TAVR has had bilateral lower extremity dusky limbs noted to be also cool to touch and uncomfortable however she has declined evaluation by vascular surgery or any further evaluation. Given her current significant right hematoma which has been enlarging over the last approximate 5 days deferring heparin drip or significant aspirin usage at this time. Although patient may not allow this we will at least attempt CTA abdomen with runoff to be able to further assess. #7. Chronic Kidney Disease Stage III, unclear subtype per GFR trending: Admission BUN/Cr 25/1.70, GFR 31, baseline renal function similar noted to be 1.5-1.6 however these labs have been remote since 2021 thus could have increased further, repeat BMP in AM. #8. CAD: Given significant size of hematoma which has been enlarging on the right flank and abdomen temporally holding aspirin, complicates presentation as patient does have elevated cardiac enzyme of unclear significance as noted above, not on statin therapy nor on beta-olivia therapy or MARY ELLEN inhibitor/ARB, attempted to clarify Although may be patient preference and refusal previously. #9. Hypertension: Holding diuretic especially given significant hyponatremia, as needed IV hydralazine in interim. #10. Valvular heart disease: Status post TAVR, most recent echocardiogram 03/30/2020 with at that time normal LV size, severe concentric LVH, LV systolic function normal, EF 60%, LA moderately enlarged, stage II diastolic dysfunction, PASP 50 mmHg with severe aortic stenosis at that time with aortic valve area 0.6 cm?, no echocardiograms noted in the system following her recent TAVR 07/20/2020 of note. #11. Hypothyroidism: We will continue patient home levothyroxine regimen, TSH requested. #12. Obesity: Weight loss and lifestyle changes encouraged. #13. High suspicion underlying untreated sleep apnea: Patient requiring oxygen especially with sleeping although this could be related to #1, do think regardless likely underlying sleep apnea, RT will evaluate. #14. DVT prophylaxis: SCDs. #15. CODE status: Patients daughters who are her medical decision makers, especially her daughter Shobha who is a nurse, there is however no formal healthcare power of attorney recruiter or living will in place. Discussed CODE status at length including difference between FULL code, DNR-CCA and DNR-CC status. Following discussions about the differences in these status, requested Full Code status. Lengthy discussion was had as patient has a spouse to significantly desire to avoid any aggressive evaluations and preference to pass at home when it is her time thus do suspect that full code is likely not which she will want once its discussed further. Advanced Care Planning Face to Face Time: 16 minutes. Charges/Coding Visit Charges Inpatient E&M: 58611 Init Hosp L3 Procedures Hospitalists Procedures: 63092 Advncd Care Plan 30 Min
[2024-07-17] MEDS: HYDROmorphone 1 MG/ML Syringe 0.5 MG IV (22:38)
[2024-07-17] MEDS: 0.9% Normal Saline (1000mL) 1,000 ML 1000 ML IV (22:45)
[2024-07-17 22:49] LABS: Reflex Lactate? Y
[2024-07-17] MEDS: Piperacil/Tazobactam 4.5 GM in 0.9% Normal Saline (100mL MB+) 100 ML IV (23:22)
[2024-07-18] VITALS (42 sets, daily range): BP systolic 87–183; BP diastolic 38–119; PULSE 51–88; RESP 13–20; TEMP 36.2–36.7; O2SAT 91–100; BMI 36.3
[2024-07-18 00:09] LABS: Lactic Acid 1.1 mmol/L (0.4-1.9)
--- NOTE | 2024-07-18 00:10 | ECHOCS_ITS ---
Reason For Study : NSTEMI Procedure This was a 2D Doppler, Color Flow transthoracic echocardiogram. The study was technically difficult. Exam performed portable in ICU/CCU. Left Ventricle Normal LV size. Severe concentric left ventricular hypertrophy. The left ventricular ejection fraction is 65 %. At least stage I diastolic dysfunction. Right Ventricle Mild hypertrophy of the right ventricle. Normal systolic function. Atria The left atrium is severely enlarged. Normal right atrium. Mitral Valve Severe mitral annular calcification. Mild (1+) mitral valve insufficiency. Tricuspid Valve Trivial tricuspid valve insufficiency. Unable to estimate RV systolic pressure due to insufficient tricuspid regurgitant envelope. Aortic Valve Bioprosthetic aortic valve mean peak gradient 9.5 mmHg. Trace regurgitation. Pulmonic Valve The pulmonic valve is not well visualized. Great Vessels Normal sized aortic root. Pericardium/Pleural No pericardial effusion. Medication Diluted definity 2.0ml given slow IV push to enhance endocardial definition. MMode/2D Measurements & Calculations LVIDd: 4.4 cm IVSd: 1.8 cm LVOT diam: 1.9 cm LVIDs: 2.4 cm LVPWd: 1.7 cm RVDd: 3.8 cm FS: 45.0 % LVOT area: 2.7 cm2 Ao root diam: 3.0 cm LAV(MOD-sp4): 53.2 ml LVAd ap4: 25.4 cm2 LVLd ap4: 7.3 cm EDV(MOD-sp4): 77.0 ml EDV(sp4-el): 74.8 ml LVAs ap4: 17.5 cm2 LVLs ap4: 6.6 cm ESV(MOD-sp4): 40.1 ml ESV(sp4-el): 39.4 ml EF(MOD-sp4): 47.8 % EF(sp4-el): 47.3 % SV(MOD-sp4): 36.8 ml SV(sp4-el): 35.4 ml LA A4 area: 19.9 cm2 SI(MOD-sp4): 17.5 ml/m2 LA dimension(2D): 3.9 cm Doppler Measurements & Calculations Lat Peak E' Jose: 8.3 cm/sec Med Peak E' Jose: 12.6 cm/sec MV V2 max: 216.4 cm/sec MV max P.8 mmHg MV V2 mean: 129.9 cm/sec MV mean P.2 mmHg MV V2 VTI: 34.9 cm MVA(VTI): 2.1 cm2 MV P1/2t max jose: 213.5 cm/sec Ao V2 max: 221.1 cm/sec LV V1 max: 125.7 cm/sec MV P1/2t: 39.9 msec Ao max P.6 mmHg LV V1 max P.3 mmHg Ao V2 mean: 143.2 cm/sec LV V1 mean P.7 mmHg MV dec slope: 1568 cm/sec2 Ao mean P.5 mmHg LV V1 mean: 91.7 cm/sec MVA(P1/2t): 5.5 cm2 Ao V2 VTI: 41.7 cm LV V1 VTI: 27.2 cm AV (velocity ratio): 0.65 WINSOME(I,D): 1.8 cm2 WINSOME(V,D): 1.6 cm2 SV(LVOT): 74.2 ml PA V2 max: 119.3 cm/sec ECHO/Echo Complete W/ Contrast Interpretation Summary Technically difficult study with suboptimal apical images. Severe concentric left ventricular hypertrophy. The left ventricular ejection fraction is 65 %. At least stage I diastolic dysfunction. Mild hypertrophy of the right ventricle. The left atrium is severely enlarged. Mild (1+) mitral valve insufficiency. Mean mitral valve gradient 8 mmHg. Severe mitral valve annular calcification. Bioprosthetic aortic valve mean peak gradient 9.5 mmHg. Trace regurgitation. Ordering Physician: Kassi Duke Referring Physician: Giovanna Wright Performed By: Milena Layne RDCS
[2024-07-18] MEDS: 0.9% Normal Saline (1000mL) 1,000 ML 100 ML IV (00:30)
[2024-07-18 01:30] LABS: Magnesium 1.9 mg/dL (1.6-2.6); Phosphorus 3.6 mg/dL (2.5-4.9)
[2024-07-18] MEDS: Vancomycin HCl 2,000 MG in 0.9% Normal Saline (500mL Bag) 500 ML 250 MG IV (01:36)
--- NOTE | 2024-07-18 01:58 | PCM.RX.CS ---
Consult Antibiotic Management Pharmacy has been consulted to manage selected antibiotic: Vancomycin Type of Intervention Type of Consult: New start Labs Labs: Sodium 116 mmol/L (136-145) L* 07/17/24 18:25 Potassium 5.2 mmol/L (3.5-5.1) H 07/17/24 18:25 Chloride 80 mmol/L (98-107) L 07/17/24 18:25 Carbon Dioxide 22.0 mmol/L (21.0-32.0) 07/17/24 18:25 Anion Gap 14 (5-15) 07/17/24 18:25 BUN 25 mg/dL (7-18) H 07/17/24 18:25 Creatinine 1.70 mg/dL (0.55-1.02) H 07/17/24 18:25 Est GFR (MDRD) Af Amer 37 mL/min (>60) L 07/17/24 18:25 Est GFR (MDRD) Non-Af 31 mL/min (>60) L 07/17/24 18:25 BUN/Creatinine Ratio 14.7 RATIO (10-20) 07/17/24 18:25 Glucose 162 mg/dL (74-106) H 07/17/24 18:25 Microbiology Microbiology: Microbiology 07/17/24 18:30 Mucosa - Nose SARS-CoV-2, Influenza & RSV (PCR) - Final Dosing Weight Weight used for dosin.3 kg Estimated Creatinine Clearance Estimated Creatinine Clearance: 32.9 Goal Trough Goal Trough: 15-20 mcg/mL Pharmacy Plan for Drug Dosing Pharmacy Plan for Drug Dosing: Pharmacy Service will continue to monitor and adjust dosing as required. LOADING DOSE 2GM GIVEN 07/18 @ 0136. START 1500MG Q24H AND DRAW TROUGH PRIOR TO 3RD DOSE Follow-Up Labs Follow-Up Labs: Trough: Vancomycin Date/Time Labs Ordered Labs to be done on [date and time ordered]: 07/20 @ 0100
[2024-07-18] MEDS: 0.9% Saline Lock 10 ML Syringe IV ×3 (02:17→19:35)
[2024-07-18] MEDS: HYDROmorphone 0.5 MG/0.5 ML SYRINGE IV ×4 (02:17→19:35)
[2024-07-18 03:07] LABS: Anion Gap 7 (5-15); BUN 26 mg/dL (7-18); BUN/Creat Ratio 16.8 RATIO (10-20); Calcium,Total 8.5 mg/dL (8.5-10.1); Chloride 86 mmol/L (98-107); Creatinine, Serum 1.55 mg/dL (0.55-1.02); EST Glomerular Filtration Rate 34 mL/min (>60); Est Glom Filt Rate - Afr Amer 42 mL/min (>60); Estimated Creatinine Clearance 36.13 ml/min; Glucose 152 mg/dL (74-106); Potassium 4.8 mmol/L (3.5-5.1); Sodium Level 119 mmol/L (136-145); Troponin-I HS 164 pg/mL (3.0-54.0)
[2024-07-18 04:37] LABS: Absolute Lymphocyte Count 0.35 X10^3/uL (0.83-4.51); Absolute Neutrophil Count 16.6 X10^3/uL (2.0-7.7); Basophil# 0.02 X10^3/uL; Basophil% 0.1 % (0-1); Hematocrit 36.9 % (37-47); Hemoglobin 12.3 g/dL (12.0-15.0); Lymphocyte # 0.35 X10^3/ul (0.83-4.51); Mean Corp Hgb Conc 33.3 g/dL (32-36); Mean Corpuscular Hgb 28.1 pg (27.0-32.0); Mean Corpuscular Volume 84.4 fL (81-99); Mean Platelet Vol. 10.6 fl (6.2-12.0); Monocyte% 4.5 % (0-10); NRBC Flagged by Analyzer 0 % (0-5); Neutrophil # 16.62 X10^3/uL (2.7-7.7); Neutrophil % 92.9 % (47-70); POSITIVE DIFFERENTIAL YES; Platelet Count 300 K/mm3 (150-450); RBC Distribution Width CV 13.6 % (11.6-14.6); RBC Distribution Width SD 41.9 fl (35.1-43.9); Red Blood Count 4.37 M/mm3 (4.2-5.4); White Blood Count 17.9 K/mm3 (4.4-11.0)
[2024-07-18] MEDS: Norepinephrine 8 MG in 0.9% Normal Saline (250mL Bag) 242 ML 9.4 MG CONT INF (04:45)
[2024-07-18] MEDS: Piperacil/Tazobactam 3.375 GM in 0.9% Normal Saline (50mL MB+) 50 ML IV ×2 (05:00→14:23)
[2024-07-18 05:12] LABS: Troponin-I HS 167 pg/mL (3.0-54.0)
[2024-07-18 06:00] LABS: ALB/GLOB Ratio 0.9 RATIO (0.9-2.4); AST(SGOT) 59 U/L (15-37); Alanine Aminotransfer ALT/SGPT 30 U/L (13-56); Albumin, Serum 2.9 g/dL (3.2-5.0); Alkaline Phosphatase 82 U/L (45-117); Anion Gap 11 (5-15); BUN 26 mg/dL (7-18); BUN/Creat Ratio 15.6 RATIO (10-20); Calcium,Total 8.2 mg/dL (8.5-10.1); Chloride 88 mmol/L (98-107); Cholesterol 130 mg/dL (200); Creatinine, Serum 1.67 mg/dL (0.55-1.02); EST Glomerular Filtration Rate 32 mL/min (>60); Est Glom Filt Rate - Afr Amer 38 mL/min (>60); Estimated Creatinine Clearance 33.53 ml/min; Globulin 3.1 g/dL (2.2-4.2); Glucose 140 mg/dL (74-106); High Density Lipoprotein 77 mg/dL; Sodium Level 120 mmol/L (136-145); Thyroid Stim Hormone (TSH) 0.934 uIU/mL (0.358-3.740); Triglycerides 126 mg/dL; Very Low Density Lipoprotein 25 mg/dL (5-40)
[2024-07-18] MEDS: Budesonide Respules 0.5 MG/2 ML AMPUL.NEB. INHALATION ×2 (07:01→19:20)
--- NOTE | 2024-07-18 07:56 | CON.PCM.SX_ITS ---
Assessment & Plan Assessment/Plan (1) Hernia of abdominal cavity: PLAN: I do not think that she has a hematoma, rather overlying skin changes/ecchymosis 2/2 to a severe hernia with potentially compromised bowl. Recommending emergent general surgery consultation. Plastics can be available for any reconstructive needs going further, but also recommend emergent vascular surgery consultation for lower extremities. Discussed with primary team and they're in agreement. HPI Consult Data Date of Consult: 07/18/24 HPI Narrative HPI Narrative: SARAH ALMANZAR is a 79 F who presents as a consultation from the internal medicine team for a possible right flank hematoma/soft tissue problem that has been getting larger over the past several days (started as a small bump/bruise 5 days ago and got larger and more painful). Patient was admitted yesterday for right flank pain in the setting of this skin discoloration. She was placed on vasopressors for hypotension and admitted to the ICU. She has cold feet with purple discoloration. Patient is currently on BiPAP. CT scan was obtained and demonstrated a right flank hernia without any fluid collections. Patient and her daughter report that the right flank has been hurting the patient significantly with sharp severe pain worsened by movements and improved with rest. [facility]LY [facility], [facility] Medical History HLD (hyperlipidemia) Presence of stent in coronary artery (~05/13/20) Atherosclerotic heart disease of [place] coronary artery without angina pectoris Cardiac murmur CKD (chronic kidney disease) stage 3, GFR 30-59 ml/min Hypothyroidism Left atrial enlargement Left ventricular hypertrophy Nonrheumatic aortic (valve) stenosis Essential hypertension Fatigue Heart disease SOB (shortness of breath) Home Medications ?Medication ?Instructions ?Recorded ?Last Taken ?Type coenzyme Q10 30 mg capsule (CoQ-10) 30 mg PO DAILY sup plimentation 02/05/20 Unknown History cyanocobalamin (vitamin B-12) 1,000 mcg PO DAILY suppl imentation 04/30/20 Unknown History 1,000 mcg tablet triamterene 37.5 1 cap PO DAILY bp #30 caps 1 07/01/19 Unknown Rx mg-hydrochlorothiazide 25 mg capsule aspirin 81 mg tablet,delayed 81 mg PO DAILY asa 05/13/20 History release (Adult Low Dose Aspirin) azithromycin 250 mg tablet 250 mg PO DAILY cough 07/17 Unknown History benzonatate 100 mg capsule 100 mg PO TID PRN PRN cough 07/17/24 Unknown History prednisone 20 mg tablet 60 mg PO DAILY cough 5 Unknown History tramadol 50 mg tablet 50 mg PO Q8H PRN PRN pain Unknown History Allergy/AdvReac Type Severity Reaction Status Date / Time No Known Allergies Allergy Verified 07/17/24 16:35 Family History Mother Myocardial infarction Heart disease Hypertension Father Heart disease Brother Heart disease Sister CVA (cerebral vascular accident) Brother Brain aneurysm Other Cancer Diabetes Surgical History Presence of coronary angioplasty implant and graft (~05/13/20) History of hysterectomy Social History household members: children Smoking Status: Never smoker alcohol intake: never substance use type: does not use caffeine: Yes Type: coffee Number of servings: 1 Physical Exam Resp Resp Narrative: Requiring BiPAP for respiratory support GI GI Narrative: No TPP/peritoneal signs in central abdomen, but exquisite tenderness of the right flank over the ecchymotic skin. Extremity Extremity Narrative: Bilateral lower extremities with cold feet but 2+ dorsalis pedis pulses The feet have a purple discoloration No severe wounds No sensation of the feet Lab / Micro Data 07/18/24 04:11 07/18/24 04:11 Labs: Laboratory Results - last 24 hr 07/17/24 18:25: WBC 21.0 H, RBC 5.31, Hgb 15.1 H, Hct 43.5, MCV 81.9, MCH 28.4, MCHC 34.7, RDW Std Deviation 39.5, RDW Coeff of Ameya 13.5, Plt Count 346, MPV 10.7, Immature Gran % (Auto) 0.800, Neut % (Auto) 94.9 H, Lymph % (Auto) 1.9 L, [place] % (Auto) 2.3, Eos % (Auto) 0.0, Baso % (Auto) 0.1, Absolute Neuts (auto) 19.9 H, Absolute Lymphs (auto) 0.40 L, Nucleated RBC % 0, PT 12.8, INR 0.9, APTT 22.8 L, Sodium 116 L*, Potassium 5.2 H, Chloride 80 L, Carbon Dioxide 22.0, Anion Gap 14, BUN 25 H, Creatinine 1.70 H, Est GFR (MDRD) Af Amer 37 L, Est GFR (MDRD) Non-Af 31 L, BUN/Creatinine Ratio 14.7, Glucose 162 H, Calcium 9.5, Phosphorus 3.6, Magnesium 1.9, Total Bilirubin 0.70, AST 62 H, ALT 36, Alkaline Phosphatase 101, Troponin I High Sens 147 H*, Total Protein 7.3, Albumin 3.4, Globulin 3.9, Albumin/Globulin Ratio 0.9, Lipase 29 L 07/17/24 18:41: Lactic Acid 2.9 H* 07/17/24 22:09: Urine Color Yellow, Urine Clarity Clear, Urine pH 5.0, Ur Specific [place] 1.015, Urine Protein 30 H, Urine Glucose (UA) Normal, Urine Ketones Negative, Urine Occult Blood 10 H, Urine Nitrite Negative, Urine Bilirubin Negative, Urine Urobilinogen 1 H, Ur Leukocyte Esterase 25 H, Urine RBC 0-5 SEEN, Urine WBC 0-5 SEEN, Ur Squamous Epith Cells 0 SEEN, Urine Bacteria 2+, Hyaline Casts 0-5 SEEN, Urine Mucus 0 SEEN 07/17/24 23:25: Lactic Acid 1.1 07/18/24 02:13: Sodium 119 L*, Potassium 4.8, Chloride 86 L, Carbon Dioxide 26.0, Anion Gap 7, BUN 26 H, Creatinine 1.55 H, Estim Creat Clear Calc 36.13, E st GFR (MDRD) Af Amer 42 L, Est GFR (MDRD) Non-Af 34 L, BUN/Creatinine Ratio 16.8, Glucose 152 H, Calcium 8.5, Troponin I High Sens 164 H* 07/18/24 04:11: WBC 17.9 H, RBC 4.37, Hgb 12.3, Hct 36.9 L, MCV 84.4, MCH 28.1, MCHC 33.3, RDW Std Deviation 41.9, RDW Coeff of Ameya 13.6, Plt Count 300, MPV 10.6, Immature Gran % (Auto) 0.500, Neut % (Auto) 92.9 H, Lymph % (Auto) 2.0 L, [place] % (Auto) 4.5, Eos % (Auto) 0.0, Baso % (Auto) 0.1, Absolute Neuts (auto) 16.6 H, Absolute Lymphs (auto) 0.35 L, Nucleated RBC % 0, Sodium 120 L, Potassium 5.0, Chloride 88 L, Carbon Dioxide 21.0, Anion Gap 11, BUN 26 H, C reatinine 1.67 H, Estim Creat Clear Calc 33.53, Est GFR (MDRD) Af Amer 38 L, Est GFR (MDRD) Non-Af 32 L, BUN/Creatinine Ratio 15.6, Glucose 140 H, Calcium 8.2 L, Total Bilirubin 0.60, AST 59 H, ALT 30, Alkaline Phosphatase 82, Troponin I High Sens 167 H*, Total Protein 6.0 L, Albumin 2.9 L, Globulin 3.1, Albumin/Globulin Ratio 0.9, Triglycerides 126, Cholesterol 130, LDL Cholesterol 28, VLDL Cholesterol 25, HDL Cholesterol 77, TSH 0.934 Micro: Microbiology 07/18/24 02:05 Mucosa - Nasopharyngeal Respiratory Panel (PCR) - Final 07/18/24 00:43 Nasal Secretion MRSA (PCR) - Final 07/17/24 18:30 Mucosa - Nose SARS-CoV-2, Influenza & RSV (PCR) - Final Imaging Radiology Impression Abdomen/Pelvis CT 07/17/24 18:23 IMPRESSION: 1. Mild diffuse subcutaneous edema along the right flank without a focal fluid collection. 2. Large right lateral abdominal wall hernia containing large and small bowel loops without evidence of strangulation/obstruction. 3. Mildly dilated gallbladder without secondary signs of acute cholecystitis. Diffuse dilation of the common bile duct measuring 13 mm. No intrahepatic ductal dilation. 4. Small amount of gas in the vaginal pouch with a small adjacent focus of gas between the sigmoid colon and vaginal cuff. Underlying fistula not excluded. Please correlate. 5. Bilateral renal atrophy with striated nephrograms which can be seen with acute kidney injury (ATN) and pyelonephritis amongst other etiologies. Please correlate. One or more dose reduction techniques were used (e.g., Automated exposure control, adjustment of the mA and/or kV according to patient size, use of iterative reconstruction technique). Reading Location: [facility] Chest X-Ray 07/17/24 19:40 IMPRESSION: Cardiomegaly without focal airspace abnormality. Reading Location: [facility] Charges/Coding Multi Select Codes Visit Charges Office Visit/Consults: 24148 IP Consult L5 (Multiple problems evaluated, complex imaging reviewed, review of the chart. )
--- NOTE | 2024-07-18 08:01 | EX.PCM.CONCC ---
Assessment & Plan Assessment/Plan (1) Sick sinus syndrome: (2) Right flank hematoma: PLAN: Plan RECOMMENDATIONS: 1. Wean Levophed off completely given hemodynamic stability. 2. Continue gentle IV fluid hydration. 3. Empiric antibiotics, pending culture results. 4. Recommend n.p.o. status for now. 5. Echocardiogram is pending. 6. Questionable transfer to tertiary care facility per general surgery recommendations. IMPRESSIONS: 1. Abdominal wall hernia with overlying ecchymoses While the patient initially presented to the hospital with SIRS criteria, I do suspect that the vital sign perturbation and lactic acidemia is likely secondary to the patient's significant abdominal wall hernia, with the possibility of compromised bowel. In addition, the patient was hypovolemic at presentation. The patient has already been evaluated by general surgery, who is ultimately recommending transfer to a tertiary care facility. For now, recommend continuing n.p.o. status and current pain control measures. 2. Hypoxemia Likely secondary to splinting in the setting of nondisplaced rib fractures related to abdominal wall hernia. No focal infiltrate or consolidation was noted on chest imaging to suggest pneumonia. 3. Hypovolemic hyponatremia Continue gentle IV fluid resuscitation. 4. Acute on chronic kidney disease Most likely prerenal in etiology. Continue gentle IV fluid hydration. Continue to monitor urine output. No current indication for renal replacement therapy. 5. Questionable sigmoid colon vaginal cuff fistula noted on CT imaging/peripheral vascular disease/valvular heart disease/coronary artery disease/hypothyroidism/obesity/suspected sleep apnea Complicates care, management, recovery and prognosis. Continue supportive measures as noted above. This note was generated with [employer] dictation software. It may contain incorrect words, spelling, and punctuation that were not noted in checking the note before signing. HPI Consult Data Date of Consult: 07/18/24 HPI Narrative Reason for Consultation: Sepsis HPI Narrative: The patient is a 79-year-old female, with a history as outlined below, who presented to the emergency department on July 18 with right flank discomfort. The patient has an extensive medical history including coronary artery disease, valvular heart disease, chronic kidney disease, hypothyroidism, peripheral vascular disease and obesity. History pertinent to her hospitalization was obtained primarily from the patient's family, given that the patient was unable to provide any history given recent administration of pain medications. They did readily admit that the patient has been lost to routine medical follow-up for the last several decades. The patient had initially been suffering with URI symptoms over the last week, with cough, congestion and sore throat needed. The flank pain initially began several days ago and has progressively worsened over time. On presentation to the emergency department, the patient was documented to be afebrile and hemodynamically stable. Laboratory evaluation was notable for a white blood cell count of 21,000. Coagulation profile revealed an INR of 0.9. Chemistry profile was notable for a sodium of 116, potassium of 5.2, chloride of 80 and creatinine of 1.7. Lactate was elevated at 2.9. Troponin was elevated at 147. Lipase was normal. TSH was within normal limits. Urine analysis was unremarkable. COVID, influenza and RSV PCR's were negative. CT imaging of the abdomen and pelvis demonstrated diffuse subcutaneous edema along the right flank with a large right lateral abdominal wall hernia containing large and small bowel loops. In addition, there was also evidence of nondisplaced fractures of the right 10th and 11th ribs. The patient received supplemental IV fluid hydration and was started on empiric antimicrobials. She was initially admitted to the medical intensive care unit for further management. The patient has been evaluated by general surgery, who ultimately recommended that the patient be transferred to a tertiary care facility given the complicated nature of the patient's hernia. Although the patient was initially placed on Levophed overnight, her hypotension appears to be the consequence of pain medication administration. Her hemodynamic status is much improved this morning. In addition, overnight, the patient had significant periods of bradycardia and was evaluated by cardiology this morning with concern for underlying sick sinus syndrome with first-degree AV block and left bundle branch block. [facility] Medical History HLD (hyperlipidemia) Presence of stent in coronary artery (~05/13/20) Atherosclerotic heart disease of [place] coronary artery without angina pectoris Cardiac murmur CKD (chronic kidney disease) stage 3, GFR 30-59 ml/min Hypothyroidism Left atrial enlargement Left ventricular hypertrophy Nonrheumatic aortic (valve) stenosis Essential hypertension Fatigue Heart disease SOB (shortness of breath) Home Medications ?Medication ?Instructions ?Recorded ?Last Taken ?Type coenzyme Q10 30 mg capsule (CoQ-10) 30 mg PO DAILY supplimentation 02/05/20 Unknown History cyanocobalamin (vitamin B-12) 1,000 mcg PO DAILY supplimentation 04/30/20 Unknown History 1,000 mcg tablet triamterene 37.5 1 cap PO DAILY bp #30 caps 04/30/20 Unknown Rx mg-hydrochlorothiazide 25 mg capsule aspirin 81 mg tablet,delayed 81 mg PO DAILY asa 05/01/20 05/13/20 History release (Adult Low Dose Aspirin) azithromycin 250 mg tablet 250 mg PO DAILY cough 07/17/24 Unknown History benzonatate 100 mg capsule 100 mg PO TID PRN PRN cough 07/17/24 Unknown History prednisone 20 mg tablet 60 mg PO DAILY cough 07/17/24 Unknown History tramadol 50 mg tablet 50 mg PO Q8H PRN PRN pain 07/17/24 Unknown History Allergy/AdvReac Type Severity Reaction Status Date / Time No Known Allergies Allergy Verified 07/17/24 16:35 Family History Mother Myocardial infarction Heart disease Hypertension Father Heart disease Brother Heart disease Sister CVA (cerebral vascular accident) Brother Brain aneurysm Other Cancer Diabetes Surgical History Presence of coronary angioplasty implant and graft (~05/13/20) History of hysterectomy Social History household members: children Smoking Status: Never smoker alcohol intake: never substance use type: does not use caffeine: Yes Type: coffee Number of servings: 1 ROS Review of Systems ROS Unobtainable: due to mental status Physical Exam Const Constitutional Narrative: The patient is alert but appears to be in significant pain, restless in bed. Family is present at the bedside. General Appearance: lethargic and ill appearing HEENT normocephalic and head/scalp atraumatic Eyes PERRL, EOMs intact bilaterally and conjunctivae normal Neck supple General: trachea midline Resp Effort and Inspection: tachypneic Auscultation: diminished lung sounds Cardio regular rate and regular rhythm Heart Sounds: murmur GI GI Narrative: Significant ecchymoses and tenderness involving the right flank. Extremity Extremity Narrative: The distal lower extremities are dusky and cyanotic in appearance. General Extremity: Negative for clubbing or edema Neuro CN's II-XII intact bilaterally and no focal motor deficits Psych Mood & Affect: flat affect Lab / Micro Data 07/18/24 04:11 07/18/24 04:11 Labs: Laboratory Results - last 24 hr 07/17/24 18:25: WBC 21.0 H, RBC 5.31, Hgb 15.1 H, Hct 43.5, MCV 81.9, MCH 28.4, MCHC 34.7, RDW Std Deviation 39.5, RDW Coeff of [place]meya 13.5, Plt Count 346, MPV 10.7, Immature Gran % (Auto) 0.800, Neut % (Auto) 94.9 H, Lymph % (Auto) 1.9 L, [place] % (Auto) 2.3, Eos % (Auto) 0.0, Baso % (Auto) 0.1, Absolute Neuts (auto) 19.9 H, Absolute Lymphs (auto) 0.40 L, Nucleated RBC % 0, PT 12.8, INR 0.9, APTT 22.8 L, Sodium 116 L*, Potassium 5.2 H, Chloride 80 L, Carbon Dioxide 22.0, Anion Gap 14, BUN 25 H, Creatinine 1.70 H, Est GFR (MDRD) Af Amer 37 L, Est GFR (MDRD) Non-Af 31 L, BUN/Creatinine Ratio 14.7, Glucose 162 H, Calcium 9.5, Phosphorus 3.6, Magnesium 1.9, Total Bilirubin 0.70, AST 62 H, ALT 36, Alkaline Phosphatase 101, Troponin I High Sens 147 H*, Total Protein 7.3, Albumin 3.4, Globulin 3.9, Albumin/Globulin Ratio 0.9, Lipase 29 L 07/17/24 18:41: Lactic Acid 2.9 H* 07/17/24 22:09: Urine Color Yellow, Urine Clarity Clear, Urine pH 5.0, Ur Specific [place] 1.015, Urine Protein 30 H, Urine Glucose (UA) Normal, Urine Ketones Negative, Urine Occult Blood 10 H, Urine Nitrite Negative, Urine Bilirubin Negative, Urine Urobilinogen 1 H, Ur Leukocyte Esterase 25 H, Urine RBC 0-5 SEEN, Urine WBC 0-5 SEEN, Ur Squamous Epith Cells 0 SEEN, Urine Bacteria 2+, Hyaline Casts 0-5 SEEN, Urine Mucus 0 SEEN 07/17/24 23:25: Lactic Acid 1.1 07/18/24 02:13: Sodium 119 L*, Potassium 4.8, Chloride 86 L, Carbon Dioxide 26.0, Anion Gap 7, BUN 26 H, Creatinine 1.55 H, Estim Creat Clear Calc 36.13, Est GFR (MDRD) Af Amer 42 L, Est GFR (MDRD) Non-Af 34 L, BUN/Creatinine Ratio 16.8, Glucose 152 H, Calcium 8.5, Troponin I High Sens 164 H* 07/18/24 04:11: WBC 17.9 H, RBC 4.37, Hgb 12.3, Hct 36.9 L, MCV 84.4, MCH 28.1, MCHC 33.3, RDW Std Deviation 41.9, RDW Coeff of Ameya 13.6, Plt Count 300, MPV 10.6, Immature Gran % (Auto) 0.500, Neut % (Auto) 92.9 H, Lymph % (Auto) 2.0 L, [place] % (Auto) 4.5, Eos % (Auto) 0.0, Baso % (Auto) 0.1, Absolute Neuts (auto) 16.6 H, Absolute Lymphs (auto) 0.35 L, Nucleated RBC % 0, Sodium 120 L, Potassium 5.0, Chloride 88 L, Carbon Dioxide 21.0, Anion Gap 11, BUN 26 H, Creatinine 1.67 H, Estim Creat Clear Calc 33.53, Est GFR (MDRD) Af Amer 38 L, Est GFR (MDRD) Non-Af 32 L, BUN/Creatinine Ratio 15.6, Glucose 140 H, Calcium 8.2 L, Total Bilirubin 0.60, AST 59 H, ALT 30, Alkaline Phosphatase 82, Troponin I High Sens 167 H*, Total Protein 6.0 L, Albumin 2.9 L, Globulin 3.1, Albumin/Globulin Ratio 0.9, Triglycerides 126, Cholesterol 130, LDL Cholesterol 28, VLDL Cholesterol 25, HDL Cholesterol 77, TSH 0.934 Micro: Microbiology 07/17/24 22:09 Urine Catheter - Catheter Legionella Antigen - Final 07/17/24 22:09 Urine Catheter - Catheter Streptococcus pneumoniae Antigen (M - Final 07/18/24 02:05 Mucosa - Nasopharyngeal Respiratory Panel (PCR) - Final 07/18/24 00:43 Nasal Secretion MRSA (PCR) - Final 07/17/24 18:30 Mucosa - Nose SARS-CoV-2, Influenza & RSV (PCR) - Final Imaging Radiology Impression Abdomen/Pelvis CT 07/17/24 18:23 IMPRESSION: 1. Mild diffuse subcutaneous edema along the right flank without a focal fluid collection. 2. Large right lateral abdominal wall hernia containing large and small bowel loops without evidence of strangulation/obstruction. 3. Mildly dilated gallbladder without secondary signs of acute cholecystitis. Diffuse dilation of the common bile duct measuring 13 mm. No intrahepatic ductal dilation. 4. Small amount of gas in the vaginal pouch with a small adjacent focus of gas between the sigmoid colon and vaginal cuff. Underlying fistula not excluded. Please correlate. 5. Bilateral renal atrophy with striated nephrograms which can be seen with acute kidney injury (ATN) and pyelonephritis amongst other etiologies. Please correlate. One or more dose reduction techniques were used (e.g., Automated exposure control, adjustment of the mA and/or kV according to patient size, use of iterative reconstruction technique). Reading Location: [facility] Chest X-Ray 07/17/24 19:40 IMPRESSION: Cardiomegaly without focal airspace abnormality. Reading Location: [facility] Charges/Coding Visit Charges Inpatient E&M: 64702 Init Hosp L3
[2024-07-18 08:02] LABS: Urine Sodium 6 mmol/L (Not Establ.)
[2024-07-18 08:04] LABS: Osmolality, Urine 676 mOsm/KG
--- NOTE | 2024-07-18 08:35 | EX.PCM.CON.S ---
Assessment & Plan Assessment/Plan (1) Hernia of abdominal cavity: PLAN: Patient has a hernia which the family believes is from coughing. I do not have any old CTs to compare to. I reviewed the CT myself and it appears that the hernia is displacing her lowest to ribs on the right downward. This is likely what causes in her pain. I have asked the radiologist to reread the CT scan to see if there are any posterior rib fractures. Patient has a large hematoma on the right flank. It is tender. I was not able to palpate to see if I am reducing the hernia as it is so thickened. Patient is currently on BiPAP. The patient came in with hyponatremic and dehydrated. Her lactic acid has returned to normal levels. Her troponins are elevated. At this time I recommend transfer to a larger center because this is a very big complicated hernia which is herniating through the chest wall. Pramod Damico MD Pager: [facility] [address] [place] [address], [address] [place] [address] Office: HPI Consult Data Date of Consult: 07/18/24 HPI Narrative HPI Narrative: SARAH ALMANZAR, is a 79 F who presents With bruising on her right flank she had a CT scan. CT scan revealed a hernia on the right flank. Containing colon. Patient is having severe pain on the right side and shortness of breath. She is on BiPAP currently. [facility] Medical History HLD (hyperlipidemia) Presence of stent in coronary artery (~05/13/20) Atherosclerotic heart disease of [place] coronary artery without angina pectoris Cardiac murmur CKD (chronic kidney disease) stage 3, GFR 30-59 ml/min Hypothyroidism Left atrial enlargement Left ventricular hypertrophy Nonrheumatic aortic (valve) stenosis Essential hypertension Fatigue Heart disease SOB (shortness of breath) Home Medications ?Medication ?Instructions ?Recorded ?Last Taken ?Type coenzyme Q10 30 mg capsule (CoQ-10) 30 mg PO DAILY supplimentation 02/05/20 Unknown History cyanocobalamin (vitamin B-12) 1,000 mcg PO DAILY supplimentation 04/30/20 Unknown History 1,000 mcg tablet triamterene 37.5 1 cap PO DAILY bp #30 caps 04/30/20 Unknown Rx mg-hydrochlorothiazide 25 mg capsule aspirin 81 mg tablet,delayed 81 mg PO DAILY asa 05/01/20 05/13/20 History release (Adult Low Dose Aspirin) azithromycin 250 mg tablet 250 mg PO DAILY cough 07/17/24 Unknown History benzonatate 100 mg capsule 100 mg PO TID PRN PRN cough 07/17/24 Unknown History prednisone 20 mg tablet 60 mg PO DAILY cough 07/17/24 Unknown History tramadol 50 mg tablet 50 mg PO Q8H PRN PRN pain 07/17/24 Unknown History Allergy/AdvReac Type Severity Reaction Status Date / Time No Known Allergies Allergy Verified 07/17/24 16:35 Family History Mother Myocardial infarction Heart disease Hypertension Father Heart disease Brother Heart disease Sister CVA (cerebral vascular accident) Brother Brain aneurysm Other Cancer Diabetes Surgical History Presence of coronary angioplasty implant and graft (~05/13/20) History of hysterectomy Social History household members: children Smoking Status: Never smoker alcohol intake: never substance use type: does not use caffeine: Yes Type: coffee Number of servings: 1 ROS Review of Systems ROS Unobtainable: due to mental status Physical Exam Const alert General Appearance: cooperative Eyes PERRL Resp Resp Narrative: On BiPAP Cardio Rate: regular rate Rhythm: regular rhythm GI soft to palpation Palpation: tender Lab / Micro Data 07/18/24 04:11 07/18/24 04:11 Labs: Laboratory Results - last 24 hr 07/17/24 18:25: WBC 21.0 H, RBC 5.31, Hgb 15.1 H, Hct 43.5, MCV 81.9, MCH 28.4, MCHC 34.7, RDW Std Deviation 39.5, RDW Coeff of Ameya 13.5, Plt Count 346, MPV 10.7, Immature Gran % (Auto) 0.800, Neut % (Auto) 94.9 H, Lymph % (Auto) 1.9 L, [place] % (Auto) 2.3, Eos % (Auto) 0.0, Baso % (Auto) 0.1, Absolute Neuts (auto) 19.9 H, Absolute Lymphs (auto) 0.40 L, Nucleated RBC % 0, PT 12.8, INR 0.9, APTT 22.8 L, Sodium 116 L*, Potassium 5.2 H, Chloride 80 L, Carbon Dioxide 22.0, Anion Gap 14, BUN 25 H, Creatinine 1.70 H, Est GFR (MDRD) Af Amer 37 L, Est GFR (MDRD) Non-Af 31 L, BUN/Creatinine Ratio 14.7, Glucose 162 H, Calcium 9.5, Phosphorus 3.6, Magnesium 1.9, Total Bilirubin 0.70, AST 62 H, ALT 36, Alkaline Phosphatase 101, Troponin I High Sens 147 H*, Total Protein 7.3, Albumin 3.4, Globulin 3.9, Albumin/Globulin Ratio 0.9, Lipase 29 L 07/17/24 18:41: Lactic Acid 2.9 H* 07/17/24 22:09: Urine Color Yellow, Urine Clarity Clear, Urine pH 5.0, Ur Specific [place] 1.015, Urine Protein 30 H, Urine Glucose (UA) Normal, Urine Ketones Negative, Urine Occult Blood 10 H, Urine Nitrite Negative, Urine Bilirubin Negative, Urine Urobilinogen 1 H, Ur Leukocyte Esterase 25 H, Urine RBC 0-5 SEEN, Urine WBC 0-5 SEEN, Ur Squamous Epith Cells 0 SEEN, Urine Bacteria 2+, Hyaline Casts 0-5 SEEN, Urine Mucus 0 SEEN, Urine Osmolality 676, Ur Random Sodium 6, Urine Creatinine 224.00 07/17/24 23:25: Lactic Acid 1.1 07/18/24 02:13: Sodium 119 L*, Potassium 4.8, Chloride 86 L, Carbon Dioxide 26.0, Anion Gap 7, BUN 26 H, Creatinine 1.55 H, Estim Creat Clear Calc 36.13, Est GFR (MDRD) Af Amer 42 L, Est GFR (MDRD) Non-Af 34 L, BUN/Creatinine Ratio 16.8, Glucose 152 H, Calcium 8.5, Troponin I High Sens 164 H* 07/18/24 04:11: WBC 17.9 H, RBC 4.37, Hgb 12.3, Hct 36.9 L, MCV 84.4, MCH 28.1, MCHC 33.3, RDW Std Deviation 41.9, RDW Coeff of Ameya 13.6, Plt Count 300, MPV 10.6, Immature Gran % (Auto) 0.500, Neut % (Auto) 92.9 H, Lymph % (Auto) 2.0 L, [place] % (Auto) 4.5, Eos % (Auto) 0.0, Baso % (Auto) 0.1, Absolute Neuts (auto) 16.6 H, Absolute Lymphs (auto) 0.35 L, Nucleated RBC % 0, Sodium 120 L, Potassium 5.0, Chloride 88 L, Carbon Dioxide 21.0, Anion Gap 11, BUN 26 H, Creatinine 1.67 H, Estim Creat Clear Calc 33.53, Est GFR (MDRD) Af Amer 38 L, Est GFR (MDRD) Non-Af 32 L, BUN/Creatinine Ratio 15.6, Glucose 140 H, Calcium 8.2 L, Total Bilirubin 0.60, AST 59 H, ALT 30, Alkaline Phosphatase 82, Troponin I High Sens 167 H*, Total Protein 6.0 L, Albumin 2.9 L, Globulin 3.1, Albumin/Globulin Ratio 0.9, Triglycerides 126, Cholesterol 130, LDL Cholesterol 28, VLDL Cholesterol 25, HDL Cholesterol 77, TSH 0.934 Micro: Microbiology 07/17/24 22:09 Urine Catheter - Catheter Legionella Antigen - Final 07/17/24 22:09 Urine Catheter - Catheter Streptococcus pneumoniae Antigen (M - Final 07/18/24 02:05 Mucosa - Nasopharyngeal Respiratory Panel (PCR) - Final 07/18/24 00:43 Nasal Secretion MRSA (PCR) - Final 07/17/24 18:30 Mucosa - Nose SARS-CoV-2, Influenza & RSV (PCR) - Final Imaging Radiology Impression Abdomen/Pelvis CT 07/17/24 18:23 IMPRESSION: 1. Mild diffuse subcutaneous edema along the right flank without a focal fluid collection. 2. Large right lateral abdominal wall hernia containing large and small bowel loops without evidence of strangulation/obstruction. 3. Mildly dilated gallbladder without secondary signs of acute cholecystitis. Diffuse dilation of the common bile duct measuring 13 mm. No intrahepatic ductal dilation. 4. Small amount of gas in the vaginal pouch with a small adjacent focus of gas between the sigmoid colon and vaginal cuff. Underlying fistula not excluded. Please correlate. 5. Bilateral renal atrophy with striated nephrograms which can be seen with acute kidney injury (ATN) and pyelonephritis amongst other etiologies. Please correlate. One or more dose reduction techniques were used (e.g., Automated exposure control, adjustment of the mA and/or kV according to patient size, use of iterative reconstruction technique). Reading Location: [facility] Chest X-Ray 07/17/24 19:40 IMPRESSION: Cardiomegaly without focal airspace abnormality. Reading Location: [facility]
--- NOTE | 2024-07-18 09:00 | PCM.CONS.C ---
Assessment & Plan Assessment/Plan (1) Sick sinus syndrome: PLAN: Patient likely has underlying sick sinus syndrome with her first-degree AV block and left bundle branch block. She had episodes of second-degree type I [place]enc[place]bach and then second-degree type II heart block as well. I suspect these acute episodes of second-degree heart block were secondary to increased vagal tone with her severe pain with her spontaneous abdominal wall hematoma. Continue to monitor. If she does not have any further episodes of heart block, then recommend 15-day event monitoring upon discharge home. She might very well need a permanent pacemaker at some point in time. (2) History of coronary artery disease: PLAN: Antiplatelet agents on hold secondary to spontaneous abdominal wall hematoma. Troponin elevation likely secondary to demand ischemia on baseline CAD. Continue to monitor. (3) Presence of stent in coronary artery: PLAN: See #2 above. (4) S/P TAVR (transcatheter aortic valve replacement): PLAN: Continue following as outpatient. (5) Right flank hematoma: PLAN: As per surgery/internal medicine. (6) CKD (chronic kidney disease) stage 3, GFR 30-59 ml/min: PLAN: As per internal medicine. HPI Consult Data Date of Consult: 07/18/24 HPI Narrative Reason for Consultation: Heart block HPI Narrative: 79-year-old lady with past medical history significant for aortic valve disease status post TAVR, coronary artery disease with history of percutaneous intervention and hypertension. Presented to the hospital with severe pain in her right flank. She has been noted to have hematoma of her abdominal wall. Overnight, she was noted to have episodes of Wenckebach type I second-degree AV block and then also an ECG consistent with type II second-degree AV block. Her baseline ECG is sinus rhythm with first-degree AV block and left bundle branch block. Patient continues to complain of severe right flank pain. No complaints of any chest pain. [facility] Medical History HLD (hyperlipidemia) Presence of stent in coronary artery (~05/13/20) Atherosclerotic heart disease of [place] coronary artery without angina pectoris Cardiac murmur CKD (chronic kidney disease) stage 3, GFR 30-59 ml/min Hypothyroidism Left atrial enlargement Left ventricular hypertrophy Nonrheumatic aortic (valve) stenosis Essential hypertension Fatigue Heart disease SOB (shortness of breath) Home Medications ?Medication ?Instructions ?Recorded ?Last Taken ?Type coenzyme Q10 30 mg capsule (CoQ-10) 30 mg PO DAILY supplimentation 02/05/20 Unknown History cyanocobalamin (vitamin B-12) 1,000 mcg PO DAILY supplimentation 04/30/20 Unknown History 1,000 mcg tablet triamterene 37.5 1 cap PO DAILY bp #30 caps 04/30/20 Unknown Rx mg-hydrochlorothiazide 25 mg capsule aspirin 81 mg tablet,delayed 81 mg PO DAILY asa 05/01/20 05/13/20 History release (Adult Low Dose Aspirin) azithromycin 250 mg tablet 250 mg PO DAILY cough 07/17/24 Unknown History benzonatate 100 mg capsule 100 mg PO TID PRN PRN cough 07/17/24 Unknown History prednisone 20 mg tablet 60 mg PO DAILY cough 07/17/24 Unknown History tramadol 50 mg tablet 50 mg PO Q8H PRN PRN pain 07/17/24 Unknown History Allergy/AdvReac Type Severity Reaction Status Date / Time No Known Allergies Allergy Verified 07/17/24 16:35 Family History Mother Myocardial infarction Heart disease Hypertension Father Heart disease Brother Heart disease Sister CVA (cerebral vascular accident) Brother Brain aneurysm Other Cancer Diabetes Surgical History Presence of coronary angioplasty implant and graft (~05/13/20) History of hysterectomy Social History household members: children Smoking Status: Never smoker alcohol intake: never substance use type: does not use caffeine: Yes Type: coffee Number of servings: 1 Physical Exam Narrative Appears in severe distress. Lying flat in the bed. Complaining of right flank pain. Heart sounds 1 and 2 noted. Chest examination with decreased breath sounds at bilateral bases. Awake and alert. Chronic lower extremity edema. Risk Stratification Risk Stratification Applicable: No Objective Data Vital Signs: Vital Signs Temp Pulse Resp BP Pulse Ox O2 Del Method O2 Flow Rate 97.2 F L 60 16 142/56 H 99 Bi-pap 4 07/17/24 23:54 07/18/24 07:03 07/18/24 07:03 07/18/24 07:00 07/18/24 07:03 07/18/24 07:00 07/18/24 03:00 FiO2 30 07/18/24 07:03 Oxygen Flow Rate (L/min) 4 Oxygen Delivery Method Bi-pap Weight: 225 lb 8.526 oz Body Mass Index (BMI) 36.3 Intake & Output: Intake and Output for Last 24 Hours 07/16/24 07/17/24 07/18/24 23:59 23:59 23:59 Intake Total 1100 / 1100 561.15 / 561.15 Balance 1100 / 1100 561.15 / 561.15 Lab / Micro Data 07/18/24 04:11 07/18/24 04:11 Labs: Laboratory Results - last 24 hr 07/17/24 18:25: WBC 21.0 H, RBC 5.31, Hgb 15.1 H, Hct 43.5, MCV 81.9, MCH 28.4, MCHC 34.7, RDW Std Deviation 39.5, RDW Coeff of Ameya 13.5, Plt Count 346, MPV 10.7, Immature Gran % (Auto) 0.800, Neut % (Auto) 94.9 H, Lymph % (Auto) 1.9 L, [place] % (Auto) 2.3, Eos % (Auto) 0.0, Baso % (Auto) 0.1, Absolute Neuts (auto) 19.9 H, Absolute Lymphs (auto) 0.40 L, Nucleated RBC % 0, PT 12.8, INR 0.9, APTT 22.8 L, Sodium 116 L*, Potassium 5.2 H, Chloride 80 L, Carbon Dioxide 22.0, Anion Gap 14, BUN 25 H, Creatinine 1.70 H, Est GFR (MDRD) Af Amer 37 L, Est GFR (MDRD) Non-Af 31 L, BUN/Creatinine Ratio 14.7, Glucose 162 H, Calcium 9.5, Phosphorus 3.6, Magnesium 1.9, Total Bilirubin 0.70, AST 62 H, ALT 36, Alkaline Phosphatase 101, Troponin I High Sens 147 H*, Total Protein 7.3, Albumin 3.4, Globulin 3.9, Albumin/Globulin Ratio 0.9, Lipase 29 L 07/17/24 18:41: Lactic Acid 2.9 H* 07/17/24 22:09: Urine Color Yellow, Urine Clarity Clear, Urine pH 5.0, Ur Specific [place] 1.015, Urine Protein 30 H, Urine Glucose (UA) Normal, Urine Ketones Negative, Urine Occult Blood 10 H, Urine Nitrite Negative, Urine Bilirubin Negative, Urine Urobilinogen 1 H, Ur Leukocyte Esterase 25 H, Urine RBC 0-5 SEEN, Urine WBC 0-5 SEEN, Ur Squamous Epith Cells 0 SEEN, Urine Bacteria 2+, Hyaline Casts 0-5 SEEN, Urine Mucus 0 SEEN, Urine Osmolality 676, Ur Random Sodium 6, Urine Creatinine 224.00 07/17/24 23:25: Lactic Acid 1.1 07/18/24 02:13: Sodium 119 L*, Potassium 4.8, Chloride 86 L, Carbon Dioxide 26.0, Anion Gap 7, BUN 26 H, Creatinine 1.55 H, Estim Creat Clear Calc 36.13, Est GFR (MDRD) Af Amer 42 L, Est GFR (MDRD) Non-Af 34 L, BUN/Creatinine Ratio 16.8, Glucose 152 H, Calcium 8.5, Troponin I High Sens 164 H* 07/18/24 04:11: WBC 17.9 H, RBC 4.37, Hgb 12.3, Hct 36.9 L, MCV 84.4, MCH 28.1, MCHC 33.3, RDW Std Deviation 41.9, RDW Coeff of Ameya 13.6, Plt Count 300, MPV 10.6, Immature Gran % (Auto) 0.500, Neut % (Auto) 92.9 H, Lymph % (Auto) 2.0 L, [place] % (Auto) 4.5, Eos % (Auto) 0.0, Baso % (Auto) 0.1, Absolute Neuts (auto) 16.6 H, Absolute Lymphs (auto) 0.35 L, Nucleated RBC % 0, Sodium 120 L, Potassium 5.0, Chloride 88 L, Carbon Dioxide 21.0, Anion Gap 11, BUN 26 H, Creatinine 1.67 H, Estim Creat Clear Calc 33.53, Est GFR (MDRD) Af Amer 38 L, Est GFR (MDRD) Non-Af 32 L, BUN/Creatinine Ratio 15.6, Glucose 140 H, Calcium 8.2 L, Total Bilirubin 0.60, AST 59 H, ALT 30, Alkaline Phosphatase 82, Troponin I High Sens 167 H*, Total Protein 6.0 L, Albumin 2.9 L, Globulin 3.1, Albumin/Globulin Ratio 0.9, Triglycerides 126, Cholesterol 130, LDL Cholesterol 28, VLDL Cholesterol 25, HDL Cholesterol 77, TSH 0.934 Micro: Microbiology 07/17/24 22:09 Urine, Catheterized Urine Culture - Preliminary Culture exhibits no growth. 07/17/24 22:09 Urine Catheter - Catheter Legionella Antigen - Final 07/17/24 22:09 Urine Catheter - Catheter Streptococcus pneumoniae Antigen (M - Final 07/18/24 02:05 Mucosa - Nasopharyngeal Respiratory Panel (PCR) - Final 07/18/24 00:43 Nasal Secretion MRSA (PCR) - Final 07/17/24 18:30 Mucosa - Nose SARS-CoV-2, Influenza & RSV (PCR) - Final Cardiology Labs/Tests 07/17/24 18:25: WBC 21.0 H, RBC 5.31, Hgb 15.1 H, Hct 43.5, MCV 81.9, MCH 28.4, MCHC 34.7, Plt Count 346, MPV 10.7, Immature Gran % (Auto) 0.800, Neut % (Auto) 94.9 H, Lymph % (Auto) 1.9 L, [place] % (Auto) 2.3, Eos % (Auto) 0.0, Baso % (Auto) 0.1, Absolute Neuts (auto) 19.9 H, Nucleated RBC % 0, PT 12.8, INR 0.9, APTT 22.8 L, Sodium 116 L*, Potassium 5.2 H, Chloride 80 L, Carbon Dioxide 22.0, Anion Gap 14, BUN 25 H, Creatinine 1.70 H, Est GFR (MDRD) Af Amer 37 L, Est GFR (MDRD) Non-Af 31 L, BUN/Creatinine Ratio 14.7, Glucose 162 H, Calcium 9.5, Phosphorus 3.6, Magnesium 1.9, Total Bilirubin 0.70 07/17/24 18:41: Lactic Acid 2.9 H* 07/17/24 22:09: Urine Color Yellow, Urine Clarity Clear, Urine pH 5.0, Ur Specific [place] 1.015, Urine Protein 30 H, Urine Glucose (UA) Normal, Urine Ketones Negative, Urine Occult Blood 10 H, Urine Nitrite Negative, Urine Bilirubin Negative, Urine Urobilinogen 1 H, Ur Leukocyte Esterase 25 H, Urine RBC 0-5 SEEN, Urine WBC 0-5 SEEN 07/17/24 23:25: Lactic Acid 1.1 07/18/24 02:13: Sodium 119 L*, Potassium 4.8, Chloride 86 L, Carbon Dioxide 26.0, Anion Gap 7, BUN 26 H, Creatinine 1.55 H, Est GFR (MDRD) Af Amer 42 L, Est GFR (MDRD) Non-Af 34 L, BUN/Creatinine Ratio 16.8, Glucose 152 H, Calcium 8.5 07/18/24 04:11: WBC 17.9 H, RBC 4.37, Hgb 12.3, Hct 36.9 L, MCV 84.4, MCH 28.1, MCHC 33.3, Plt Count 300, MPV 10.6, Immature Gran % (Auto) 0.500, Neut % (Auto) 92.9 H, Lymph % (Auto) 2.0 L, [place] % (Auto) 4.5, Eos % (Auto) 0.0, Baso % (Auto) 0.1, Absolute Neuts (auto) 16.6 H, Nucleated RBC % 0, Sodium 120 L, Potassium 5.0, Chloride 88 L, Carbon Dioxide 21.0, Anion Gap 11, BUN 26 H, Creatinine 1.67 H, Est GFR (MDRD) Af Amer 38 L, Est GFR (MDRD) Non-Af 32 L, BUN/Creatinine Ratio 15.6, Glucose 140 H, Calcium 8.2 L, Total Bilirubin 0.60, Triglycerides 126, Cholesterol 130, LDL Cholesterol 28, VLDL Cholesterol 25, HDL Cholesterol 77 Rhythm: EKG: ECHO: Stress Test: Cardiac Cath: PCI: CT Surgery: Holter monitor: EPS: PPM: CXR: Chest CT Scan: Radiography Diagnostic Testing: Radiology Impression Abdomen/Pelvis CT 07/17/24 18:23 IMPRESSION: 1. Mild diffuse subcutaneous edema along the right flank without a focal fluid collection. 2. Large right lateral abdominal wall hernia containing large and small bowel loops without evidence of strangulation/obstruction. 3. Mildly dilated gallbladder without secondary signs of acute cholecystitis. Diffuse dilation of the common bile duct measuring 13 mm. No intrahepatic ductal dilation. 4. Small amount of gas in the vaginal pouch with a small adjacent focus of gas between the sigmoid colon and vaginal cuff. Underlying fistula not excluded. Please correlate. 5. Bilateral renal atrophy with striated nephrograms which can be seen with acute kidney injury (ATN) and pyelonephritis amongst other etiologies. Please correlate. One or more dose reduction techniques were used (e.g., Automated exposure control, adjustment of the mA and/or kV according to patient size, use of iterative reconstruction technique). Reading Location: [facility] Chest X-Ray 07/17/24 19:40 IMPRESSION: Cardiomegaly without focal airspace abnormality. Reading Location: [facility]
[2024-07-18 09:04] LABS: Troponin-I HS 189 pg/mL (3.0-54.0)
--- NOTE | 2024-07-18 09:23 | CASEMGMT ---
Insurance review for hospitals In-network with [facility] insurance if transfer is recommended is as follows: [facility], [facility], [place], [facility], [facility], [facility], , [place], [facility], [facility], and [place]. Mita Lacy, Discharge Planning Asst.
--- NOTE | 2024-07-18 10:46 | PCM.CONS.GEN ---
Assessment & Plan Assessment/Plan (1) S/P TAVR (transcatheter aortic valve replacement): (2) Sepsis: PLAN: Suspected related to URI and large abd hernia. Transfer planned, cont vanc/zosyn. Will follow, thank you, d/w Dr. Dorantes (3) Hernia of abdominal cavity: HPI Consult Data Date of Consult: 07/18/24 HPI Narrative Reason for Consultation: sepsis HPI Narrative: SARAH ALMANZAR, is a 79 F with h/o TAVR, CKD, PAD, had about 2 weeks cough, sore throat, congestion, headache, fatigue. No reported fall, but developed large progressive bruise over R flank over past 4-5 days. Pain became severe, taken to ED, admitted to icu on vanc/zosyn. No reported lower abd pain. Additional history from daughter at bedside. Full ROS performed and neg except as noted above. [facility] Medical History HLD (hyperlipidemia) Presence of stent in coronary artery (~05/13/20) Atherosclerotic heart disease of [place] coronary artery without angina pectoris Cardiac murmur CKD (chronic kidney disease) stage 3, GFR 30-59 ml/min Hypothyroidism Left atrial enlargement Left ventricular hypertrophy Nonrheumatic aortic (valve) stenosis Essential hypertension Fatigue Heart disease SOB (shortness of breath) Home Medications ?Medication ?Instructions ?Recorded ?Last Taken ?Type coenzyme Q10 30 mg capsule (CoQ-10) 30 mg PO DAILY supplimentation 02/05/20 Unknown History cyanocobalamin (vitamin B-12) 1,000 mcg PO DAILY supplimentation 04/30/20 Unknown History 1,000 mcg tablet triamterene 37.5 1 cap PO DAILY bp #30 caps 04/30/20 Unknown Rx mg-hydrochlorothiazide 25 mg capsule aspirin 81 mg tablet,delayed 81 mg PO DAILY asa 05/01/20 05/13/20 History release (Adult Low Dose Aspirin) azithromycin 250 mg tablet 250 mg PO DAILY cough 07/17/24 Unknown History benzonatate 100 mg capsule 100 mg PO TID PRN PRN cough 07/17/24 Unknown History prednisone 20 mg tablet 60 mg PO DAILY cough 07/17/24 Unknown History tramadol 50 mg tablet 50 mg PO Q8H PRN PRN pain 07/17/24 Unknown History Allergy/AdvReac Type Severity Reaction Status Date / Time No Known Allergies Allergy Verified 07/17/24 16:35 Family History Mother Myocardial infarction Heart disease Hypertension Father Heart disease Brother Heart disease Sister CVA (cerebral vascular accident) Brother Brain aneurysm Other Cancer Diabetes Surgical History Presence of coronary angioplasty implant and graft (~05/13/20) History of hysterectomy Social History household members: children Smoking Status: Never smoker alcohol intake: never substance use type: does not use caffeine: Yes Type: coffee Number of servings: 1 Physical Exam Const no apparent distress General Appearance: lethargic HEENT normocephalic and head/scalp atraumatic Eyes PERRL and EOMs intact bilaterally Neck supple and No nodes Resp Auscultation: diminished lung sounds Cardio Rate: tachycardic GI GI Narrative: RUQ and R flank redness, warmth, induration, tenderness Extremity General Extremity: cyanosis and edema Skin Skin Narrative: no other rash Neuro CN's II-XII intact bilaterally Lab / Micro Data Attestation: I reviewed the patient's lab results. 07/18/24 04:11 07/18/24 04:11 Labs: Laboratory Results - last 24 hr 07/17/24 18:25: WBC 21.0 H, RBC 5.31, Hgb 15.1 H, Hct 43.5, MCV 81.9, MCH 28.4, MCHC 34.7, RDW Std Deviation 39.5, RDW Coeff of Ameya 13.5, Plt Count 346, MPV 10.7, Immature Gran % (Auto) 0.800, Neut % (Auto) 94.9 H, Lymph % (Auto) 1.9 L, [place] % (Auto) 2.3, Eos % (Auto) 0.0, Baso % (Auto) 0.1, Absolute Neuts (auto) 19.9 H, Absolute Lymphs (auto) 0.40 L, Nucleated RBC % 0, PT 12.8, INR 0.9, APTT 22.8 L, Sodium 116 L*, Potassium 5.2 H, Chloride 80 L, Carbon Dioxide 22.0, Anion Gap 14, BUN 25 H, Creatinine 1.70 H, Est GFR (MDRD) Af Amer 37 L, Est GFR (MDRD) Non-Af 31 L, BUN/Creatinine Ratio 14.7, Glucose 162 H, Calcium 9.5, Phosphorus 3.6, Magnesium 1.9, Total Bilirubin 0.70, AST 62 H, ALT 36, Alkaline Phosphatase 101, Troponin I High Sens 147 H*, Total Protein 7.3, Albumin 3.4, Globulin 3.9, Albumin/Globulin Ratio 0.9, Lipase 29 L 07/17/24 18:41: Lactic Acid 2.9 H* 07/17/24 22:09: Urine Color Yellow, Urine Clarity Clear, Urine pH 5.0, Ur Specific [place] 1.015, Urine Protein 30 H, Urine Glucose (UA) Normal, Urine Ketones Negative, Urine Occult Blood 10 H, Urine Nitrite Negative, Urine Bilirubin Negative, Urine Urobilinogen 1 H, Ur Leukocyte Esterase 25 H, Urine RBC 0-5 SEEN, Urine WBC 0-5 SEEN, Ur Squamous Epith Cells 0 SEEN, Urine Bacteria 2+, Hyaline Casts 0-5 SEEN, Urine Mucus 0 SEEN, Urine Osmolality 676, Ur Random Sodium 6, Urine Creatinine 224.00 07/17/24 23:25: Lactic Acid 1.1 07/18/24 02:13: Sodium 119 L*, Potassium 4.8, Chloride 86 L, Carbon Dioxide 26.0, Anion Gap 7, BUN 26 H, Creatinine 1.55 H, Estim Creat Clear Calc 36.13, Est GFR (MDRD) Af Amer 42 L, Est GFR (MDRD) Non-Af 34 L, BUN/Creatinine Ratio 16.8, Glucose 152 H, Calcium 8.5, Troponin I High Sens 164 H* 07/18/24 04:11: WBC 17.9 H, RBC 4.37, Hgb 12.3, Hct 36.9 L, MCV 84.4, MCH 28.1, MCHC 33.3, RDW Std Deviation 41.9, RDW Coeff of Ameya 13.6, Plt Count 300, MPV 10.6, Immature Gran % (Auto) 0.500, Neut % (Auto) 92.9 H, Lymph % (Auto) 2.0 L, [place] % (Auto) 4.5, Eos % (Auto) 0.0, Baso % (Auto) 0.1, Absolute Neuts (auto) 16.6 H, Absolute Lymphs (auto) 0.35 L, Nucleated RBC % 0, Sodium 120 L, Potassium 5.0, Chloride 88 L, Carbon Dioxide 21.0, Anion Gap 11, BUN 26 H, Creatinine 1.67 H, Estim Creat Clear Calc 33.53, Est GFR (MDRD) Af Amer 38 L, Est GFR (MDRD) Non-Af 32 L, BUN/Creatinine Ratio 15.6, Glucose 140 H, Calcium 8.2 L, Total Bilirubin 0.60, AST 59 H, ALT 30, Alkaline Phosphatase 82, Troponin I High Sens 167 H*, Total Protein 6.0 L, Albumin 2.9 L, Globulin 3.1, Albumin/Globulin Ratio 0.9, Triglycerides 126, Cholesterol 130, LDL Cholesterol 28, VLDL Cholesterol 25, HDL Cholesterol 77, TSH 0.934 07/18/24 08:20: Troponin I High Sens 189 H* Micro: Microbiology 07/17/24 22:09 Urine, Catheterized Urine Culture - Preliminary Culture exhibits no growth. 07/17/24 22:09 Urine Catheter - Catheter Legionella Antigen - Final 07/17/24 22:09 Urine Catheter - Catheter Streptococcus pneumoniae Antigen (M - Final 07/18/24 02:05 Mucosa - Nasopharyngeal Respiratory Panel (PCR) - Final 07/18/24 00:43 Nasal Secretion MRSA (PCR) - Final 07/17/24 18:30 Mucosa - Nose SARS-CoV-2, Influenza & RSV (PCR) - Final Imaging Radiology Impression Abdomen/Pelvis CT 07/17/24 18:23 IMPRESSION: 1. Mild diffuse subcutaneous edema along the right flank without a focal fluid collection. 2. Large right lateral abdominal wall hernia containing large and small bowel loops without evidence of strangulation/obstruction. 3. Mildly dilated gallbladder without secondary signs of acute cholecystitis. Diffuse dilation of the common bile duct measuring 13 mm. No intrahepatic ductal dilation. 4. Small amount of gas in the vaginal pouch with a small adjacent focus of gas between the sigmoid colon and vaginal cuff. Underlying fistula not excluded. Please correlate. 5. Bilateral renal atrophy with striated nephrograms which can be seen with acute kidney injury (ATN) and pyelonephritis amongst other etiologies. Please correlate. One or more dose reduction techniques were used (e.g., Automated exposure control, adjustment of the mA and/or kV according to patient size, use of iterative reconstruction technique). Reading Location: [facility] Chest X-Ray 07/17/24 19:40 IMPRESSION: Cardiomegaly without focal airspace abnormality. Reading Location: [facility]
--- NOTE | 2024-07-18 10:50 | PN.HOSP_ITS ---
Reason for Visit Reason for Visit: Diagnoses Hypo-osmolality and hyponatremia (07/17/24) Sick sinus syndrome (07/17/24) Unspecified abdominal hernia without obstruction or gangrene (07/17/24) Chronic kidney disease, stage 3 unspecified (07/17/24) Contusion of abdominal wall, initial encounter (07/17/24) Personal history of other diseases of the circulatory system (07/17/24) Presence of prosthetic heart valve (07/17/24) Presence of coronary angioplasty implant and graft (07/17/24) Objective Data Objective Data Vital Signs: Vital Signs Temp Pulse Resp BP Pulse Ox O2 Del Method O2 Flow Rate 97.1 F L 75 13 155/53 H 95 Nasal Cannula 3 07/18/24 09:00 07/18/24 10:30 07/18/24 10:00 07/18/24 10:30 07/18/24 10:00 07/18/24 10:00 07/18/24 10:00 FiO2 30 07/18/24 07:03 Oxygen Flow Rate (L/min) 3 Oxygen Delivery Method Nasal Cannula Weight: 102.3 kg Body Mass Index (BMI) 36.3 Intake & Output: Intake and Output for Last 24 Hours 07/16/24 07/17/24 07/18/24 23:59 23:59 23:59 Intake Total 1100 / 1100 624.37 / 624.37 Output Total 50 / 50 Balance 1100 / 1100 574.37 / 574.37 Lab / Micro Data 07/18/24 04:11 07/18/24 04:11 Labs: Laboratory Results - last 24 hr 07/17/24 18:25: WBC 21.0 H, RBC 5.31, Hgb 15.1 H, Hct 43.5, MCV 81.9, MCH 28.4, MCHC 34.7, RDW Std Deviation 39.5, RDW Coeff of Ameya 13.5, Plt Count 346, MPV 10.7, Immature Gran % (Auto) 0.800, Neut % (Auto) 94.9 H, Lymph % (Auto) 1.9 L, [place] % (Auto) 2.3, Eos % (Auto) 0.0, Baso % (Auto) 0.1, Absolute Neuts (auto) 19.9 H, Absolute Lymphs (auto) 0.40 L, Nucleated RBC % 0, PT 12.8, INR 0.9, APTT 22.8 L, Sodium 116 L*, Potassium 5.2 H, Chloride 80 L, Carbon Dioxide 22.0, Anion Gap 14, BUN 25 H, Creatinine 1.70 H, Est GFR (MDRD) Af Amer 37 L, Est GFR (MDRD) Non-Af 31 L, BUN/Creatinine Ratio 14.7, Glucose 162 H, Calcium 9.5, Phosphorus 3.6, Magnesium 1.9, Total Bilirubin 0.70, AST 62 H, ALT 36, Alkaline Phosphatase 101, Troponin I High Sens 147 H*, Total Protein 7.3, Albumin 3.4, Globulin 3.9, Albumin/Globulin Ratio 0.9, Lipase 29 L 07/17/24 18:41: Lactic Acid 2.9 H* 07/17/24 22:09: Urine Color Yellow, Urine Clarity Clear, Urine pH 5.0, Ur Specific [place] 1.015, Urine Protein 30 H, Urine Glucose (UA) Normal, Urine Ketones Negative, Urine Occult Blood 10 H, Urine Nitrite Negative, Urine Bilirubin Negative, Urine Urobilinogen 1 H, Ur Leukocyte Esterase 25 H, Urine RBC 0-5 SEEN, Urine WBC 0-5 SEEN, Ur Squamous Epith Cells 0 SEEN, Urine Bacteria 2+, Hyaline Casts 0-5 SEEN, Urine Mucus 0 SEEN, Urine Osmolality 676, Ur Random Sodium 6, Urine Creatinine 224.00 07/17/24 23:25: Lactic Acid 1.1 07/18/24 02:13: Sodium 119 L*, Potassium 4.8, Chloride 86 L, Carbon Dioxide 26.0, Anion Gap 7, BUN 26 H, Creatinine 1.55 H, Estim Creat Clear Calc 36.13, E st GFR (MDRD) Af Amer 42 L, Est GFR (MDRD) Non-Af 34 L, BUN/Creatinine Ratio 16.8, Glucose 152 H, Calcium 8.5, Troponin I High Sens 164 H* 07/18/24 04:11: WBC 17.9 H, RBC 4.37, Hgb 12.3, Hct 36.9 L, MCV 84.4, MCH 28.1, MCHC 33.3, RDW Std Deviation 41.9, RDW Coeff of Ameya 13.6, Plt Count 300, MPV 10.6, Immature Gran % (Auto) 0.500, Neut % (Auto) 92.9 H, Lymph % (Auto) 2.0 L, [place] % (Auto) 4.5, Eos % (Auto) 0.0, Baso % (Auto) 0.1, Absolute Neuts (auto) 16.6 H, Absolute Lymphs (auto) 0.35 L, Nucleated RBC % 0, Sodium 120 L, Potassium 5.0, Chloride 88 L, Carbon Dioxide 21.0, Anion Gap 11, BUN 26 H, C reatinine 1.67 H, Estim Creat Clear Calc 33.53, Est GFR (MDRD) Af Amer 38 L, Est GFR (MDRD) Non-Af 32 L, BUN/Creatinine Ratio 15.6, Glucose 140 H, Calcium 8.2 L, Total Bilirubin 0.60, AST 59 H, ALT 30, Alkaline Phosphatase 82, Troponin I High Sens 167 H*, Total Protein 6.0 L, Albumin 2.9 L, Globulin 3.1, Albumin/Globulin Ratio 0.9, Triglycerides 126, Cholesterol 130, LDL Cholesterol 28, VLDL Cholesterol 25, HDL Cholesterol 77, TSH 0.934 07/18/24 08:20: Troponin I High Sens 189 H* Micro: Microbiology 07/17/24 22:09 Urine, Catheterized Urine Culture - Preliminary Culture exhibits no growth. 07/17/24 22:09 Urine Catheter - Catheter Legionella Antigen - Final 07/17/24 22:09 Urine Catheter - Catheter Streptococcus pneumoniae Antigen (M - Final 07/18/24 02:05 Mucosa - Nasopharyngeal Respiratory Panel (PCR) - Final 07/18/24 00:43 Nasal Secretion MRSA (PCR) - Final 07/17/24 18:30 Mucosa - Nose SARS-CoV-2, Influenza & RSV (PCR) - Final Radiography Diagnostic Testing: Radiology Impression Abdomen/Pelvis CT 07/17/24 18:23 IMPRESSION: 1. Mild diffuse subcutaneous edema along the right flank without a focal fluid collection. 2. Large right lateral abdominal wall hernia containing large and small bowel loops without evidence of strangulation/obstruction. 3. Mildly dilated gallbladder without secondary signs of acute cholecystitis. Diffuse dilation of the common bile duct measuring 13 mm. No intrahepatic ductal dilation. 4. Small amount of gas in the vaginal pouch with a small adjacent focus of gas between the sigmoid colon and vaginal cuff. Underlying fistula not excluded. Please correlate. 5. Bilateral renal atrophy with striated nephrograms which can be seen with acute kidney injury (ATN) and pyelonephritis amongst other etiologies. Please correlate. One or more dose reduction techniques were used (e.g., Automated exposure control, adjustment of the mA and/or kV according to patient size, use of iterative reconstruction technique). Reading Location: [facility] Chest X-Ray 07/17/24 19:40 IMPRESSION: Cardiomegaly without focal airspace abnormality. Reading Location: [facility]
[2024-07-18] MEDS: TITRATION PARAMETER CHANGE 1 EACH IV (11:00)
[2024-07-18] MEDS: 0.9% Normal Saline (1000mL) 1,000 ML 150 ML IV (16:10)
--- NOTE | 2024-07-18 16:22 | PCM.DC.SUM ---
Providers Date of Admission: 07/17/24 Date of Discharge: 07/18/24 Primary Care Physician: Dr. Giovanna Wright, Consultations 07/18/24 00:08 Consult: Plastic Surgery Routine Consulting Provider: Aubrey Younger Reason for Consult: R sided flank/abd hematoma EMERGENT Consult: No Notified: Yes Date Notified: 07/18/24 Time Notified: 00:09 Method of Notification: Text 07/18/24 00:13 Consult: [employer] / Pulmonary Medicine Routine Consulting Provider: Intensivists/Pulmonary Med Reason for Consult: SIRS, Elevated trop, Hyponatremia, R abd/flank hematoma EMERGENT Consult: No MD Notified: Yes Date Notified: 07/18/24 Time Notified: 05:29 Method of Notification: Text 07/18/24 07:07 Consult: General Surgery Routine Consulting Provider: Pramod Damico Reason for Consult: Hernia EMERGENT Consult: No Notified: Yes Date Notified: 07/18/24 Time Notified: 07:07 Method of Notification: Verbal Consult: Infectious Disease Routine Consulting Provider: Aubrey Toure Reason for Consult: Septic shock, unclear etiology EMERGENT Consult: No Notified: Yes Date Notified: 07/18/24 Time Notified: 07:07 Method of Notification: Text Reason For Visit: SIRS UNCLEAR SOURCE, SEVERE HYPONATREMIA, FLANK Diagnosis Discharge Diagnosis (1) Sick sinus syndrome: Status: Acute Code(s): I49.5 - Sick sinus syndrome (2) Right flank hematoma: Status: Acute Code(s): S30.1XXA - Contusion of abdominal wall, initial encounter Medications at Discharge Home Medications coenzyme Q10 30 mg capsule (CoQ-10) 30 mg PO DAILY supplimentation 02/05/20 cyanocobalamin (vitamin B-12) 1,000 mcg tablet 1,000 mcg PO DAILY supplimentation 04/30/20 triamterene 37.5 mg-hydrochlorothiazide 25 mg capsule 1 cap PO DAILY bp #30 caps 04/30/20 Held on 07/18/24. Instructions: Resume on 07/29/24. aspirin 81 mg tablet,delayed release (Adult Low Dose Aspirin) 81 mg PO DAILY asa 05/01/20 benzonatate 100 mg capsule 100 mg PO TID PRN PRN cough 07/17/24 Hospital Course Operations None Procedures EKG, Transthoracic echo and - (CT abdomen pelvis, chest x-ray) Summary of Care Provided Minutes Spent on Discharge: 45 Hospital Course: Patient is a 79-year-old female who presented [facility] ED on 07/17/2024 with worsening right flank pain. Hospital course as noted below. Patient transferred to [facility] on 07/18. 1. Severe extensive right flank hematoma with large right lateral abdominal hernia without obstruction and nondisplaced rib fractures ? General Surgery followed. CT abdomen pelvis on admit showed extensive right flank hematoma with large right lateral abdominal hernia without obstruction and nondisplaced rib fractures. General surgery evaluated and noted that due to the complexity of the hernia, patient required transfer to a tertiary facility for further management. Transferred to [facility] on 07/18. 2. Sepsis without shock ? Met sepsis criteria on admit with elevated lactic acid and SBP less than 90 in setting of suspected upper respiratory infection versus infection related to abdominal hernia. Given 2 L of IV fluids on admit but hold on further fluids with concern for secondary heart block and possible heart failure as noted below. Did require low-dose Levophed for short time, weaned off by time of transfer. Infectious disease followed, continue IV vancomycin and Zosyn on transfer. 3. Acute hyponatremia ? Sodium 116, chloride 80 on admit. Baseline sodium around 135. Patient with cognitive slowing but no severe mental status change, no need for hypertonic saline. Suspected secondary to significant volume depletion. Sodium improved to 120 by time of discharge and we were running maintenance IV normal saline on discharge. 4. URI symptoms with cough ? Patient reported recent infectious symptoms with significant cough and it is suspected that the cough led to the significant hernia with hematoma. Chest x-ray showed cardiomegaly without focal airspace disease. COVID/flu/RSV and respiratory panel negative. Symptomatic management. 5. Bilateral lower extremity discoloration ? Plastic surgery followed. Patient with dusky appearing bilateral feet on admit initially concerning for possible ischemic limb. However, had warm feet and palpable DP pulses and family noted that this had been going on for some time. Suspect patient does have significant underlying vascular disease but there is no need for acute intervention. Can consider further evaluation at tertiary center versus close outpatient follow-up. 6. Incidental common bile duct dilatation ? Noted on CT abdomen pelvis on admit. Monitor. 7. CKD stage IIIb ? Creatinine stable at baseline 1.5-1.7 during hospitalization. 8. Suspected sick sinus syndrome with episodes of secondary type II heart block ? Cardiology followed. Patient had acute episodes of both second-degree type I and type II heart block during short hospitalization. Cardiology suspects that patient has underlying sick sinus syndrome with first-degree AV block and left bundle branch block. Recommend close monitoring going forward and patient may need pacemaker placement in the future. Chronic medical conditions: ? Class II obesity: BMI 36 on admit. Complicates hospital course, care and prognosis. ? History of CAD with stenting, hypertension, hyperlipidemia: Continued home aspirin, held home blood pressure medication on discharge. ? History of AV stenosis s/p TAVR Total clinical time spent by myself addressing the patient's medical issues, reviewing all the data, and collaborating with patient's care team: 45 minutes. Physical Exam Const Constitutional Narrative: Elderly female, class obesity, fatigued appearing and somewhat somnolent after receiving recent pain medication, mildly uncomfortable and anxious appearing due to ongoing right flank pain, answering only a few questions with short appropriate responses. General Appearance: cooperative HEENT normocephalic, head/scalp atraumatic, hearing grossly normal bilaterally and nasal mucous membranes and turbinates normal Eyes PERRL, EOMs intact bilaterally and conjunctivae normal Neck full ROM Chest inspection of chest normal Resp normal respiratory effort, normal air movement, no use of accessory muscles and clear to auscultation bilaterally Cardio regular rate, regular rhythm, no murmurs and peripheral pulses 2+ throughout GI GI Narrative: Severe extensive hematoma noted in the right flank region extending around to the back with moderate to severe tenderness palpation noted. Abdomen otherwise soft and nondistended. Back/Spine normal ROM Extremity Extremity Narrative: Bilateral feet appeared dusky but were warm with palpable DP pulses. Skin no rashes or lesions noted Neuro moves all extremities and no focal motor deficits Weight / BMI Weight Weight: 102.3 kg Body Mass Index (BMI) 36.3 ABG / Lab / Microbiology Data 07/18/24 04:11 07/18/24 04:11 Laboratory: Laboratory Results - last 24 hr 07/17/24 18:25: WBC 21.0 H, RBC 5.31, Hgb 15.1 H, Hct 43.5, MCV 81.9, MCH 28.4, MCHC 34.7, RDW Std Deviation 39.5, RDW Coeff of Ameya 13.5, Plt Count 346, MPV 10.7, Immature Gran % (Auto) 0.800, Neut % (Auto) 94.9 H, Lymph % (Auto) 1.9 L, [place] % (Auto) 2.3, Eos % (Auto) 0.0, Baso % (Auto) 0.1, Absolute Neuts (auto) 19.9 H, Absolute Lymphs (auto) 0.40 L, Nucleated RBC % 0, PT 12.8, INR 0.9, APTT 22.8 L, Sodium 116 L*, Potassium 5.2 H, Chloride 80 L, Carbon Dioxide 22.0, Anion Gap 14, BUN 25 H, Creatinine 1.70 H, Est GFR (MDRD) Af Amer 37 L, Est GFR (MDRD) Non-Af 31 L, BUN/Creatinine Ratio 14.7, Glucose 162 H, Calcium 9.5, Phosphorus 3.6, Magnesium 1.9, Total Bilirubin 0.70, AST 62 H, ALT 36, Alkaline Phosphatase 101, Troponin I High Sens 147 H*, Total Protein 7.3, Albumin 3.4, Globulin 3.9, Albumin/Globulin Ratio 0.9, Lipase 29 L 07/17/24 18:41: Lactic Acid 2.9 H* 07/17/24 22:09: Urine Color Yellow, Urine Clarity Clear, Urine pH 5.0, Ur Specific [place] 1.015, Urine Protein 30 H, Urine Glucose (UA) Normal, Urine Ketones Negative, Urine Occult Blood 10 H, Urine Nitrite Negative, Urine Bilirubin Negative, Urine Urobilinogen 1 H, Ur Leukocyte Esterase 25 H, Urine RBC 0-5 SEEN, Urine WBC 0-5 SEEN, Ur Squamous Epith Cells 0 SEEN, Urine Bacteria 2+, Hyaline Casts 0-5 SEEN, Urine Mucus 0 SEEN, Urine Osmolality 676, Ur Random Sodium 6, Urine Creatinine 224.00 07/17/24 23:25: Lactic Acid 1.1 07/18/24 02:13: Sodium 119 L*, Potassium 4.8, Chloride 86 L, Carbon Dioxide 26.0, Anion Gap 7, BUN 26 H, Creatinine 1.55 H, Estim Creat Clear Calc 36.13, Est GFR (MDRD) Af Amer 42 L, Est GFR (MDRD) Non-Af 34 L, BUN/Creatinine Ratio 16.8, Glucose 152 H, Calcium 8.5, Troponin I High Sens 164 H* 07/18/24 04:11: WBC 17.9 H, RBC 4.37, Hgb 12.3, Hct 36.9 L, MCV 84.4, MCH 28.1, MCHC 33.3, RDW Std Deviation 41.9, RDW Coeff of Ameya 13.6, Plt Count 300, MPV 10.6, Immature Gran % (Auto) 0.500, Neut % (Auto) 92.9 H, Lymph % (Auto) 2.0 L, [place] % (Auto) 4.5, Eos % (Auto) 0.0, Baso % (Auto) 0.1, Absolute Neuts (auto) 16.6 H, Absolute Lymphs (auto) 0.35 L, Nucleated RBC % 0, Sodium 120 L, Potassium 5.0, Chloride 88 L, Carbon Dioxide 21.0, Anion Gap 11, BUN 26 H, Creatinine 1.67 H, Estim Creat Clear Calc 33.53, Est GFR (MDRD) Af Amer 38 L, Est GFR (MDRD) Non-Af 32 L, BUN/Creatinine Ratio 15.6, Glucose 140 H, Calcium 8.2 L, Total Bilirubin 0.60, AST 59 H, ALT 30, Alkaline Phosphatase 82, Troponin I High Sens 167 H*, Total Protein 6.0 L, Albumin 2.9 L, Globulin 3.1, Albumin/Globulin Ratio 0.9, Triglycerides 126, Cholesterol 130, LDL Cholesterol 28, VLDL Cholesterol 25, HDL Cholesterol 77, TSH 0.934 07/18/24 08:20: Troponin I High Sens 189 H* Microbiology: Microbiology 07/17/24 22:09 Urine, Catheterized Urine Culture - Preliminary Culture exhibits no growth. 07/17/24 22:09 Urine Catheter - Catheter Legionella Antigen - Final 07/17/24 22:09 Urine Catheter - Catheter Streptococcus pneumoniae Antigen (M - Final 07/18/24 02:05 Mucosa - Nasopharyngeal Respiratory Panel (PCR) - Final 07/18/24 00:43 Nasal Secretion MRSA (PCR) - Final 07/17/24 18:30 Mucosa - Nose SARS-CoV-2, Influenza & RSV (PCR) - Final Radiography Diagnostic Testing: Radiology Impression Abdomen/Pelvis CT 07/17/24 18:23 IMPRESSION: 1. Mild diffuse subcutaneous edema along the right flank without a focal fluid collection. 2. Large right lateral abdominal wall hernia containing large and small bowel loops without evidence of strangulation/obstruction. 3. Mildly dilated gallbladder without secondary signs of acute cholecystitis. Diffuse dilation of the common bile duct measuring 13 mm. No intrahepatic ductal dilation. 4. Small amount of gas in the vaginal pouch with a small adjacent focus of gas between the sigmoid colon and vaginal cuff. Underlying fistula not excluded. Please correlate. 5. Bilateral renal atrophy with striated nephrograms which can be seen with acute kidney injury (ATN) and pyelonephritis amongst other etiologies. Please correlate. One or more dose reduction techniques were used (e.g., Automated exposure control, adjustment of the mA and/or kV according to patient size, use of iterative reconstruction technique). Reading Location: [facility] Chest X-Ray 07/17/24 19:40 IMPRESSION: Cardiomegaly without focal airspace abnormality. Reading Location: [facility] Echocardiogram 07/18/24 00:10 Interpretation Summary Technically difficult study with suboptimal apical images. Severe concentric left ventricular hypertrophy. The left ventricular ejection fraction is 65 %. At least stage I diastolic dysfunction. Mild hypertrophy of the right ventricle. The left atrium is severely enlarged. Mild (1+) mitral valve insufficiency. Mean mitral valve gradient 8 mmHg. Severe mitral valve annular calcification. Bioprosthetic aortic valve mean peak gradient 9.5 mmHg. Trace regurgitation. Ordering Physician: Kassi Duke Referring Physician: Giovanna Wright Performed By: Milena Layne RDCS D/C Instructions DC O2, CPAP, BIPAP Needs PSN CPAP & BiPAP: BiPAP & CPAP Settings per PSN Mode AVAPS 07/18/24 14:29 Bipap Delivery Device Face Mask 07/18/24 14:29 BiPAP Expiratory Pressure 12 07/18/24 14:29 BiPAP Rate 14 07/18/24 14:29 Fraction of Inspired Oxygen ( 30 07/18/24 15:00 FIO2) Home O2 Discharge instructions: No Meaningful Use Info Meaningful Use Meaningful Use Diagnoses (Choose all that apply): None applicable Ischemic Stroke Statin Dosing Therapy Reference: STATIN DOSE THERAPY REFERENCE: * Patients > 75 years receive moderate or high dose statin therapy. * Patients 75 years or YOUNGER should receive HIGH intensity statin dose unless contraindicated. You will be required to document reason for non-treatment if statin daily dose does not meet guidelines. HIGH DOSE STATIN THERAPY DAILY Atorvastatin > than or = to 40 mg Rosuvastatin > than or = to 20 mg Amlodipine + Atorvastatin > than or = to 2.5/40 mg Ezetimibe + Simvastatin 10/80 mg Simvastatin 80mg Discharge Plan Admission Admit Date/Time: 07/17/24 22:32 Primary Reason for Your Visit: abdominal pain Attending Provider: Martir Nina Primary Care Provider: Giovanna Wright Consulting Providers: Aubrey Younger; Krishna Ken; Patrick Blanc; Kyler Bynum; Jose Alfredo Dorantes; Bakari Cox; Frederic Doyle; Boris Sosa; Anita Guevara; Kenton Gusman; Rebel Wolff; Florencio Cook; Luciana Cuadra; Yair Mar; Mary Clay; Mario Cardona; Jeremiah Hobbs; Abran Barillas; Lionel Smart; Nilsa Dejesus; Rachelle Martinez; Simeon Landry; Michael Elizondo; Tyler Luu; Pramod Damico; Aubrey Toure; Kassi Duke Discharge Orders/Prescriptions Prescriptions: Continued coenzyme Q10 [CoQ-10] 30 mg capsule 30 mg PO DAILY cyanocobalamin (vitamin B-12) 1,000 mcg tablet 1,000 mcg PO DAILY aspirin [Adult Low Dose Aspirin] 81 mg tablet,delayed release (DR/EC) 81 mg PO DAILY benzonatate 100 mg capsule 100 mg PO TID PRN PRN (Reason: cough) Held triamterene-hydrochlorothiazid 37.5-25 mg capsule 1 cap PO DAILY Qty: 30 3RF Hold Instructions: Resume on 07/29/24. Discontinued tramadol 50 mg tablet 50 mg PO Q8H PRN PRN (Reason: pain) prednisone 20 mg tablet 60 mg PO DAILY azithromycin 250 mg tablet 250 mg PO DAILY Patient Comments: TAKE 2 TABLETS BY MOUTH ON DAY 1, AND THEN TAKE 1 TABLET BY MOUTH ONCE A DAY ON DAY 2 THROUGH DAY 5 Referrals / Follow Up: Giovanna Wright DO [Primary Care Provider] - Disposition Disposition (needs filled in before D/C Order can be placed): Acute Care Hospital Charges/Coding Visit Charges Inpatient E&M: 79942 Disch Hosp >30min
== END 2024-07-18 19:50 | disposition short-term general hospital (02) | DRG 393 ==
LOC: ED 22:49 → ICU 22:59
PROVIDERS: Admitting Provider Family Medicine; Emergency Provider Emergency Medicine; PCP Family Medicine; Visit Provider Hospitalist
DX: K45.8 Other specified abdominal hernia without obstruction or gangrene (principal); A41.9 Sepsis, unspecified organism; E87.20 Acidosis, unspecified; N82.3 Fistula of vagina to large intestine; S22.41XA Multiple fractures of ribs, right side, initial encounter for closed fracture; E87.1 Hypo-osmolality and hyponatremia; I49.5 Sick sinus syndrome; K83.8 Other specified diseases of biliary tract; I70.223 Atherosclerosis of native arteries of extremities with rest pain, bilateral legs; N18.32 Chronic kidney disease, stage 3b; I12.9 Hypertensive chronic kidney disease with stage 1 through stage 4 chronic kidney disease, or unspecified chronic kidney disease; E03.9 Hypothyroidism, unspecified; I35.0 Nonrheumatic aortic (valve) stenosis; E66.812 Obesity, class 2; S30.1XXA Contusion of abdominal wall, initial encounter; I44.0 Atrioventricular block, first degree; G47.30 Sleep apnea, unspecified; E78.5 Hyperlipidemia, unspecified; I25.10 Atherosclerotic heart disease of native coronary artery without angina pectoris; D72.810 Lymphocytopenia; F41.9 Anxiety disorder, unspecified; L81.9 Disorder of pigmentation, unspecified; Z79.01 Long term (current) use of anticoagulants; Z90.710 Acquired absence of both cervix and uterus; Z79.82 Long term (current) use of aspirin; Z82.3 Family history of stroke; Z95.5 Presence of coronary angioplasty implant and graft; R09.02 Hypoxemia; Z11.52 Encounter for screening for COVID-19; Z68.36 Body mass index [BMI] 36.0-36.9, adult; Z79.891 Long term (current) use of opiate analgesic; Z95.828 Presence of other vascular implants and grafts; R53.81 Other malaise; Z79.899 Other long term (current) drug therapy; Z79.52 Long term (current) use of systemic steroids; R05.9 Cough, unspecified; R22.2 Localized swelling, mass and lump, trunk; N27.1 Small kidney, bilateral; R01.1 Cardiac murmur, unspecified; Z75.1 Person awaiting admission to adequate facility elsewhere; X58.XXXA Exposure to other specified factors, initial encounter; R10.9 Unspecified abdominal pain; R79.89 Other specified abnormal findings of blood chemistry; I51.9 Heart disease, unspecified; Z95.3 Presence of xenogenic heart valve
CPT/HCPCS: 71046; 74177; 80048; 80053; 80061; 81001; 82570; 83605; 83690; 83735; 83935; 84100; 84300; 84443; 84484; 85025; 85610; 85730; 87040; 87086; 87449; 87631; 87633; 87641; 93005; 93306; 94002; 94640; 99285; P9612; Q9957; Q9967; A4216; C8929; J2405